=== PATIENT | female | born 1950 | race Caucasian/White ===

== ENCOUNTER → 2024-06-04 13:53 | Outpatient (REF) | payer OTHER, SELFPAY | LOC: RCS 13:53 | PROVIDERS: ATTENDING PHYSICIAN Internal Medicine; FAMILY PHYSICIAN Nurse Practitioner Adult Health | DX: R06.02 Shortness of breath (principal); I35.0 Nonrheumatic aortic (valve) stenosis | CPT/HCPCS: 93306 ==

== ENCOUNTER 2024-06-07 08:20 | Day surgery (SDC) | payer OTHER, SELFPAY ==
[2024-06-07] VITALS (16 sets, daily range): BP systolic 91–163; BP diastolic 49–75; BMI 28.2
[2024-06-07] MEDS: NSS 237 ML IV (09:00)
[2024-06-07] MEDS: LOW STRENGTH ASPIRIN 81 MG PO (09:37)
[2024-06-07 09:38] LABS: Hematocrit 32.4 % (37.0-47.0); Hemoglobin 11.1 g/dL (12.0-16.0); Mean Corp Hgb Conc. 34.3 g/dL (33.0-37.0); Mean Corpuscular Hgb 29.5 pg (27.0-31.0); Mean Corpuscular Volume 86.2 fL (81.0-99.0); Mean Platelet Volume 10.8 fL (7.4-10.4); Platelet Count 248 10^3/uL (130-400); Red Blood Cell Count 3.76 10^6/uL (4.20-5.40); Red Cell Dist. Width 13.8 % (11.5-14.5); White Blood Cell Count 4.8 10^3/uL (4.8-10.8)
[2024-06-07] MEDS: NSS 1000 IV (13:15)
--- NOTE | 2024-06-07 14:14 | PTCARENOTE ---
Dr Ng at pt bedside speaking to pt. Dr Ng made aware of pt's heart rate 30'-40's. Pt states she is asymptomatic. Dr Ng states she is known to have bradycardia and since she is asymptomatic, she can continue with flecainide starting
tonight. Pt verbalized understanding of instructions given with Dr Ng at pt bedside. Will continue to monitor.
--- NOTE | 2024-06-07 14:44 | ITS.CL.CATH ---
B[employer] [facility] [facility] - Catheterization
Cardiac Catheterization
Procedure Report:
CARDIAC CATHETERIZATION REPORT
Date of Procedure: 06/07/2024
Referring: Dr. Reji Ferguson
INDICATION: chest pain, aortic stenosis
PROCEDURES:
1. Left heart catheterization.
2. Right heart catheterization.
3. Coronary angiography.
ACCESS:
1. 6 Mosotho right radial artery
2. 6 Mosotho right brachial artery
CATHETERS:
1. 6 Mosotho JR4
2. 6 Mosotho JL3.5
HEMODYNAMIC DATA
Weight 79.1 kg
RA 19 mmHg
RV 46/15 mmHg
PA 42/20 (31) mmHg
PCWP 24 mmHg
SVR 1582 dyn units
PVR 1.6 BAILEY
CO/CI 4.2/2.2 L/min/m2
AO 165/72 (106)
LV 195/18 (29) mmHg
Pressure gradient 33 mmHg
ESTUARDO by Gorlin 0.83 cm2
CORONARY ANGIOGRAPHY
Dominance: left
Left Main: large, normal
LAD: Large vessel with mild luminal irregularities.
Circumflex: Large dominant vessel giving rise to two OM branches, multiple PL branches and the LPDA. There is a focal 40% stenosis in the proximal vessel and otherwise mild disease.
RCA: Small and non-dominant with mild disease.
Closure Device: TR band
Radiation:
DAP (cm2.Gy): 10.9652
Fluoroscopy time (minutes): 3.2
Dose (mGy): 181.70
CONCLUSIONS
1. Right heart catheterization demonstrates elevated right and left ventricular filling pressures, moderate post-capillary pulmonary hypertension, and reduced cardiac output and index with elevated SVR. Of note, calculated stroke volume is normal in
setting of bradycardia.
2. Simultaneous pressure measurement of AO and LV with Oneida catheter demonstrates normal flow, moderate-severe with mean pressure gradient 33 mmHg and ESTUARDO 0.83 cm2 by Gorlin.
3. Coronary angiography demonstrates non-obstructive coronary artery disease in a left dominant system.
RECOMMENDATIONS:
1. Expectant management after cardiac catheterization via radial artery approach including limited weight bearing on the right wrist for one week.
2. Medical management of non-obstructive coronary artery disease and aggressive secondary prevention of coronary artery disease.
3. Referral for TAVR/SAVR evaluation.
Copy to: Dr. Reji Ferguson
Valerio Ng MD, PhD
== END 2024-06-07 15:35 | disposition home or self-care (01) ==
LOC: CATH 08:20
PROVIDERS: ATTENDING PHYSICIAN Student in an Organized Health Care Education/Training Program; FAMILY PHYSICIAN Nurse Practitioner Adult Health; OTHER PHYSICIAN Internal Medicine
DX: I25.10 Atherosclerotic heart disease of native coronary artery without angina pectoris (principal); R07.9 Chest pain, unspecified; I35.0 Nonrheumatic aortic (valve) stenosis; I27.29 Other secondary pulmonary hypertension; Z79.82 Long term (current) use of aspirin; Z79.890 Hormone replacement therapy; Z79.899 Other long term (current) drug therapy
CPT/HCPCS: 85027; 93460; C1894; Q9967

== ENCOUNTER → 2024-06-21 09:06 | Outpatient (REF) | payer OTHER, SELFPAY | LOC: RAD 09:06 | PROVIDERS: ATTENDING PHYSICIAN Nurse Practitioner Acute Care; FAMILY PHYSICIAN Nurse Practitioner Adult Health | DX: I35.0 Nonrheumatic aortic (valve) stenosis (principal) | CPT/HCPCS: 74174; 75572; Q9967 ==

== ENCOUNTER 2024-10-12 04:54 | Inpatient (IN) | payer OTHER, SELFPAY ==
[2024-09-27 08:20] VITALS: BMI 28.6
[2024-09-27 09:16] LABS: Urine Albumin Negative (Neg - Trace); Urine Bilirubin Negative (Negative); Urine Character Clear (Clear); Urine Color Yellow; Urine Glucose Negative (Negative); Urine Ketone Negative (Negative); Urine Leukocyte Negative (Negative); Urine Nitrite Negative (Negative); Urine Occult Blood Negative (Negative); Urine Specific Gravity 1.015 (<1.030); Urine Urobilinogen Negative (Neg - 1+)
[2024-09-27 09:23] LABS: % Basophils 0.7 % (0-2); % Eosinophils 4.4 % (0-6); % Immature Granulocytes 0.2 % (0-0.5); % Lymphocytes 26.2 % (20.5-51.1); % Monocytes 9.9 % (1.7-9.3); % Neutrophils 58.6 % (42.2-75.2); Absolute Eosinophils 0.2 10^3/uL (0-0.7); Absolute Lymphocytes 1.2 10^3/uL (1.2-3.4); Absolute Monocytes 0.5 10^3/uL (0.1-0.6); Absolute Neutrophils 2.7 10^3/uL (1.4-6.5); Hematocrit 34.8 % (37.0-47.0); Hemoglobin 11.4 g/dL (12.0-16.0); INR 0.92; Mean Corp Hgb Conc. 32.8 g/dL (33.0-37.0); Mean Corpuscular Hgb 29.7 pg (27.0-31.0); Mean Corpuscular Volume 90.6 fL (81.0-99.0); Mean Platelet Volume 11.6 fL (7.4-10.4); Nucleated Red Blood Cells % 0 %; PT 12.7 Sec (11.4-14.6); Platelet Count 227 10^3/uL (130-400); Red Blood Cell Count 3.84 10^6/uL (4.20-5.40); Red Cell Dist. Width 13.4 % (11.5-14.5); White Blood Cell Count 4.6 10^3/uL (4.8-10.8)
[2024-09-27 09:46] LABS: ALT (SGPT) 21 U/L (0-35); AST (SGOT) 33 U/L (14-36); Albumin 4.4 g/dl (3.5-5.0); Alkaline Phosphatase 67 U/L (38-126); Blood Urea Nitrogen 17 mg/dl (7-17); Carbon Dioxide 29 mmol/L (22-30); Chloride 102 mmol/L (98-107); Direct Bilirubin 0.1 mg/dl (0.0-0.4); Estimated Creatinine Clearance 59 ml/min; Glucose 96 mg/dl (70-99); Potassium 4.3 mmol/L (3.5-5.1); Sodium 143 mmol/L (135-145); Total Bilirubin 0.4 mg/dl (0.2-1.3); Total Protein 6.8 g/dl (6.3-8.2); eGFR > 60.00
--- NOTE | 2024-09-27 10:06 | CM ---
Met with Mrs. Oviedo in [facility]. She states prior to admission she resides with her spouse and son in a two story home with four steps to enter. She states she has a main bedroom suite on the first floor. She states prior to admission she was
independent with ambulation and adls. She states she has a CPAP Machine at home and no other DME. She states she has a prescription plan. She states her spouse will be home to assist in his care if needed when she goes home. The discharge plan is
to return home with her spouse and a home visit by the Transitional Care Nurse when medically stable.
We reviewed pre-op and post-op routines. We reviewed the shower instructions. She has the soap, written instructions and the Cardiothoracic Surgery Educational Booklet. We also reviewed restrictions including sternal precautions and driving
restrictions. We discussed a home visit by the Transitional Care Nurse. She is agreeable to a home visit. The plan is for AVR on Saturday, October 12, 2024.
[2024-09-27 14:08] LABS: Glycohemoglobin (HgbA1c) 5.5 % (4.0-5.6)
[2024-10-12] VITALS (22 sets, daily range): BP systolic 63–187; BP diastolic 46–85; PULSE 56–60; BMI 27.7
[2024-10-12] MEDS: BACTROBAN 2% OINTMENT 1 APPLIC NASAL ×2 (05:18→20:04)
[2024-10-12] MEDS: LOPRESSOR 25 MG PO (05:18)
[2024-10-12] MEDS: MAGNESIUM OXIDE 500 MG PO (05:18)
[2024-10-12] MEDS: PROTONIX 40 MG PO (05:18)
--- NOTE | 2024-10-12 05:30 | PTCARENOTE ---
pt admitted into room 2261. VS and weight obtained. pt confirms 2 showers @ home and NPO since midnight. admission questions and med rec completed. clip prep and CHG cloth bath done. pre-op meds given. attempted several times to remove pt's rings
from left hand but unable to remove. pt's family @ bedside. all questions answered.
--- NOTE | 2024-10-12 06:21 | W.CVOR.SURPR ---
CVOR Surgeon Immed Pre Op
-
I have examined this patient prior to performance of the scheduled procedure.
The patient's condition is unchanged from the time of the dictated/written History and
Physical and the patient is able to undergo the scheduled procedure.
SAVR (bio) + SANIYA Clip
[2024-10-12 07:24] LABS: ACT+ - POC 98 Seconds (82-134)
[2024-10-12 07:48] LABS: Urine Albumin Negative (Neg - Trace); Urine Bilirubin Negative (Negative); Urine Character Clear (Clear); Urine Color Yellow; Urine Glucose Negative (Negative); Urine Ketone Negative (Negative); Urine Leukocyte Negative (Negative); Urine Nitrite Negative (Negative); Urine Occult Blood Negative (Negative); Urine Specific Gravity 1.015 (<1.030); Urine Urobilinogen Negative (Neg - 1+)
[2024-10-12 08:30] LABS: ACT+ - POC 514 Seconds (82-134)
[2024-10-12 08:48] LABS: B.E. - POC -0.1 mmol/L; Glucose - POC 104 mg/dl (70-99); HCO3 - POC 25 mmol/L (21-28); Hematocrit - POC 27 % PCV (37-47); Hemodilution- POC No; Hemoglobin Calculated - POC 9.3; Ionized Calcium - POC 1.16 mmol/L (1.15-1.33); PCO2 - POC 44 mmHg (35-48); PO2 - POC 560 mmHg (83-108); POC Comment BASELINE; Potassium - POC 4.1 mmol/L (3.5-5.1); Sodium - POC 141 mmol/L (136-145); Specimen Type - POC Arterial; pH - POC 7.37 (7.35-7.45)
[2024-10-12 08:55] LABS: ACT+ - POC 621 Seconds (82-134)
[2024-10-12 09:13] LABS: B.E. - POC 3.7 mmol/L; Glucose - POC 141 mg/dl (70-99); HCO3 - POC 28 mmol/L (21-28); Hematocrit - POC 22 % PCV (37-47); Hemodilution- POC Yes; Hemoglobin Calculated - POC 7.5; Ionized Calcium - POC 0.96 mmol/L (1.15-1.33); PCO2 - POC 38 mmHg (35-48); PO2 - POC 372 mmHg (83-108); POC Comment CPB; Potassium - POC 5.1 mmol/L (3.5-5.1); Sodium - POC 139 mmol/L (136-145); Specimen Type - POC Arterial; pH - POC 7.47 (7.35-7.45)
[2024-10-12 09:24] LABS: ACT+ - POC 586 Seconds (82-134)
[2024-10-12 09:40] LABS: Glucose - POC 182 mg/dl (70-99); HCO3 - POC 27 mmol/L (21-28); Hematocrit - POC 27 % PCV (37-47); Hemodilution- POC Yes; Hemoglobin Calculated - POC 9.3; Ionized Calcium - POC 1.06 mmol/L (1.15-1.33); O2 Saturation %Calculated-POC 99.9 % (94-98); PCO2 - POC 43 mmHg (35-48); PO2 - POC 309 mmHg (83-108); POC Comment WARM; Sodium - POC 142 mmol/L (136-145); Specimen Type - POC Arterial; pH - POC 7.41 (7.35-7.45)
[2024-10-12 09:43] LABS: ACT+ - POC 107 Seconds (82-134)
[2024-10-12 10:06] LABS: B.E. - POC -1.3 mmol/L; Glucose - POC 129 mg/dl (70-99); HCO3 - POC 23 mmol/L (21-28); Hematocrit - POC 26 % PCV (37-47); Hemodilution- POC Yes; Hemoglobin Calculated - POC 8.9; PCO2 - POC 38 mmHg (35-48); PO2 - POC 368 mmHg (83-108); POC Comment POST; Potassium - POC 3.9 mmol/L (3.5-5.1); Sodium - POC 141 mmol/L (136-145); Specimen Type - POC Arterial
--- NOTE | 2024-10-12 10:17 | W.PN.CT.SURG ---
CT Surgery Operative Note
-
CARDIAC SURGERY OPERATIVE REPORT
Preoperative Diagnosis: Aortic valve stenosis with symptoms
Postoperative Diagnosis: Same
Procedure(s) Performed:
1. Standard sternotomy with aortic and right atrial cannulation
2. Surgical aortic valve replacement [23mm biological valve]
3. Left atrial appendage exclusion [35 mm clip]
4. Placement temporary atrial ventricular pacing wires
5. Transesophageal echocardiography
Date of Surgery: 10/12/2024
Comorbidities:
1. Severe aortic valve stenosis, symptomatic
2. Uterine fibroids
3. Hyperlipidemia
4. Hypertension
5. Thyroid disease
6. Osteoarthritis
7. Nonobstructive coronary artery disease
8. Mild mitral valve insufficiency with moderately severe mitral annular calcification
9. Diverticulosis
10. Former tobacco abuser 1 to 2 packs/day for 30 years
Attending Surgeon: Gilmer Merritt MD, MS
Assistants: Aliya Yang PA-C (present and necessary to assistance coordinator, retraction, suction, exposure, suture management, and wound closure under my direction)
Anesthesiology: Rocco Gray MD and Gracie Danielle CRNA
Scrub and Circulating RNs: Salima Bennett, MARKY, Tono Gutierrez RN
Stone Mill Operator: Ivet Scott CCP
Anesthesia: GETA
EBL: per perfusion records
Products: None
CPB Time: 58 minutes
Aortic Cross Clamp Time: 46 minutes
Indication(s) for Procedures: This is a 74-year-old female with known severe aortic valve stenosis. She has recently become symptomatic in the form of shortness of breath with exertion and fatigue. She was discussed at our multidisciplinary TAVR
clinic however the patient desired to have a surgical aortic valve replacement. Despite her age of 74, she was in excellent functional status and was considered a low risk SAVR patient.
Aortic Valve Description: Heavily calcified trileaflet aortic valve mostly towards the body and free margin the leaflets with the left and right coronary ostia in the normal anatomic positions. The right coronary ostia was heavily calcified. Both
coronary ostia were of appropriate heights above the annulus. LVOT measures only 2.0 cm.
Findings: Left ventricular ejection fraction preoperatively 65% with no regional wall motion abnormalities. She had a mild to moderate degree of left ventricular hypertrophy, small LVOT with a hockey-stick shaped outflow tract. Her annulus
measured to approximate 23 mm valve and given her ventricular hypertrophy and steep angle of her LVOT, I felt that she would be at some risk for systolic anterior motion the mitral valve leaflets following surgery. Following surgery EF remained the
same at 65% with no regional wall motion abnormalities. Her aortic valve was replaced with a 23 mm bioprosthesis and secured into place with 14 nonpledgeted 2 Ethibond sutures with core knots. Initially coming off of cardiopulmonary bypass she had
a mild to moderate degree of systolic anterior motion of the mitral valve leaflets, this improved with volume loading and afterload. She was in a junctional rhythm after surgery and so atrial pacing wires were placed at which point she was able to
be atrial ventricular paced. She did not require any blood products, did not require inotropic support. Her left atrial appendage was verified to be free of any thrombus or debris preoperatively and found to be totally occlusive postoperatively.
Her ligament of Ricki was divided..
Specimen(s): Aortic valve leaflets.
Prosthesis:
1. 23 mm bioprosthesis Tsai Inspiris Resilia, serial # [id number].
2. 35 mm left atrial appendage clip, serial #[id number]
Description of Procedure: The patient was taken to the operating room. Their identity and procedure to be performed were verified and they were positioned supine on the operating table. Induction via general anesthesia with endotracheal intubation
was performed and central venous access and arterial monitoring were inserted. A preoperative transesophageal echocardiogram was performed to assess cardiac function and valvular function. The patient was then prepped and draped from chin to feet in
a sterile fashion. A preoperative time-out was performed with all members of the team present. A midline chest incision was performed along with median sternotomy. The innominate vein was isolated. Full heparinization was given (a total of 35,000
units). We created a pericardial well. The aortic cannulation site was chosen where it was soft, pliable, and free of calcium. Cannulation was performed with an arterial cannula in the ascending aorta and a triple-stage venous cannula through the
right atrial appendage. The arterial cannula line had an appropriate bounce and correlating pressures with test dosing. Next, a root vent/antegrade cannula was inserted into the ascending aorta. The ACT was confirmed to be over 400 and retrograde
autologous priming was performed before commencing cardiopulmonary bypass. The pulmonary artery was away from the aorta to facilitate a clamp site and aortotomy. A left ventricular vent was placed at the right superior pulmonary vein and
secured. The aortic cross-clamp was placed after decreasing the flow on the bypass and mean arterial pressure. A total of 1.0L initial dose of antegrade Del-Nido cardioplegia solution was given and planned for re-dosing every 75 minutes as
necessary. There was rapid electro-mechanical arrest of the heart at 300 cc of cardioplegia. The left ventricle was observed for distention on echocardiogram and manual palpation. Cold slush was placed into a sponge and topically on the RV while we
systemically cooled to 34 degrees centigrade. The heart was then rotated medially and the left atrial appendage was clipped with a 35 mm device after division of the ligament of Ricki.
Carbon dioxide was used to flood the field. We manually identified the location of the right coronary take off. An aortotomy was made approximately 2cm above the sinotubular junction. The location of both left and right coronary vessels were
visualized in the root.The leaflets were excised and sent for pathological assessment. The annulus was debrided of any calcium being mindful of the annulus and membranous septum. The root and left ventricular outflow tract were thoroughly irrigated
to remove any debris. A total of 14 non-pledgeted 2-0 ethibond inverted annular sutures were placed [id number] circumferentially. These were brought through the sewing cuff of the prosthetic valve which as then parachuted into place. The left and
right coronary ostia were visualized and were unobstructed by the valve. A Cor-Knot device was used to secure the annular sutures. The valve was inspected and was well seated. The aortotomy was approximated with 4-0 prolene in two layers. De-airing
maneuvers were performed and temporary bipolar ventricular pacing wires were placed on the base of the right ventricle. The patient was placed in a Trendelenburg position and flows on bypass were lowered. The aortic cross clamp was removed and flows
were slowly brought back up. The aortotomy appeared hemostatic. Transesophageal echocardiography revealed no paravalvular leak and appropriate prosthetic function. Once de-airing was satisfactory, the left ventricular and root vents were removed.
After verifying acceptable parameters, we initiated weaning from cardiopulmonary bypass. Once we were off cardiopulmonary bypass, the venous cannula was clamped and removed. A test dose of protamine was administered and the patient was monitored for
any adverse reaction before resuming protamine. Once half of the protamine dose was delivered, pump suckers were turned off and the systolic blood pressure was lowered for aortic decannulation. The aortic cannula was removed and pursestrings were
tied down. All cannulation sites were oversewn with a 4-0 prolene. The aortotomy suture line was inspected and hemostasis was confirmed. Mediastinal hemostasis was obtained. Two 24Fr Ramon drains were placed within the pericardium. The sternum was
approximated with 4#7 single and 3 #8 double stainless steel wires. Fascia was approximated with #1 vicryl suture. The subcutaneous, dermis and epidermis were closed in layers in a running fashion. The skin wound was cleansed and dressed.
All instrument, sponge, and needle counts were confirmed to be correct x 2 at the end of the operation. The patient was transferred to the cardiac intensive care unit in critical but stable condition.
I, Dr. Gilmer Merritt, was present, scrubbed for, and performed all critical elements of this procedure.
Gilmer Merritt MD, MS
Cardiothoracic Surgeon
[facility]
This operative dictation was created using the [employer] dictation system. Please excuse any grammatical, typographical, or 'sound alike' errors
--- NOTE | 2024-10-12 10:33 | CON.INTV ---
Consultation
Consultation Request
Date/Time Consultation Requested: 10/12/2024 - 1005
Date/Time Consultation Performed: 10/12/2024 - 1029
Requesting Provider: OSMAR Schofield
Performing Provider: Presley Farr MD
Reason for Consultation: s/p SAVR
Medical History
-
Chief Complaint: Aortic valve replacement
History of Present Illness:
74-year-old female former tobacco smoker (13-[id number]-cuyy, quit 2001) with a past medical history of moderate�severe aortic stenosis, severe TIAN on auto CPAP, uterine fibroids s/p hysteroscopy with resection, mitral regurgitation, hiatal hernia,
cataracts, paroxysmal A-fib on flecainide, and osteoarthritis who presents with surgical aortic valve replacement. She is known to the cardiothoracic surgery service with last visit on 09/14/[address] Merritt. She has a history of known
progressive aortic valve stenosis. Her last echocardiogram was from 06/04/2024 showing moderate�severe aortic stenosis with a peak gradient of 63 mmHg with a mean of 35 mmHg. Left heart catheterization from 06/07/2024 showed left-sided heart failure
with PCWP 24 mmHg, CO/CI: 4.2/2.2, respectively, with an aortic valve gradient of 33 mmHg with an ESTUARDO of 0.83 cm�. LHC also showed nonobstructive CAD with a left dominant system. She endorses fatigue with shortness of breath and satisfied stage D
symptomatology for intervention. Risks and benefits of surgical aortic valve replacement were discussed and she agreed for intervention. Today she underwent surgical aortic valve replacement with a 23 mm biological valve as well as a left atrial
appendage exclusion with a 35mm clip. There were no complications and she was transferred to the CVICU for further care. [employer] Machine Operator Helper services consulted for additional management/recommendations.
When I saw the patient she was resting in bed on SIMV at 14/500/40%/5 with PSV: 5. PIP was 22 cmH2O with VTe 525 mL and breathing at 14 breaths/min. BP via left radial A-line was 133/64, heart rate 60, BP via NIBP: 145/85, PAP: 22/12. She is
currently on Precedex at 0.3 mcg/kg/hr + insulin drip at 2.3 units/hr. She has mediastinal chest tubes x 2.
Of note patient follows with us in the [facility] office with last visit on 12/18/2023 with OSMAR Harris. She has a history of severe TIAN (baseline AHI: 53.9 events/hr with sammi SpO2 75% via HSAT on09/17/2023) and uses auto-CPAP (5-08mgH9I).
Her average CPAP pressure is 9.7 cmH2O with max pressure of 10.8 cmH2O. Her last download showed a residual AHI of 8.4 events/hr. She was told to follow-up with us in 1 year for a compliance CPAP follow-up.
PMHx: Uterine fibroids s/p hysteroscopy with resection, lichen planus (resolved), hypothyroidism, hypercholesterolemia, moderate-severe aortic stenosis, hypertension, mitral regurgitation, hiatal hernia, osteoarthritis, cataracts, paroxysmal A-fib
on flecainide, former tobacco smoker (93-jshm-kwof history, quit 2001), TIAN on CPAP
PSHx: Cystocele repair with sling (release of sling 2012), therapeutic dose of iodine 123 (01/2001), D&C with vaginal cyst removed (10/2001), D&C (04/2006), dental implants, removal of mole in the right upper leg (11/2016)
Past Medical History
Past Medical History: Other (Above as per HPI)
Past Surgical History: Other (Above as per HPI)
Social History
Tobacco: Former Smoker (54-binb-hcgy history, quit 2001)
Alcohol: Occasional
Drug: None
Family History
Family History: Cancer (Father: Pancreatic cancer), Diabetes (Brother) and Other (Father: Alcoholism; Sister: Alzheimer's disease; Brother: Congenital heart defect + TIAN on CPAP)
Allergies / Home Medications
Allergies
Allergy/AdvReac Type Severity Reaction Status Date / Time
ciprofloxacin [From Cipro] Allergy Rash Verified 09/21/24 15:00
ciprofloxacin HCl Allergy Rash and Verified 09/21/24 15:00
[From Cipro] itch
pollen extracts Allergy runny nose Verified 09/21/24 15:00
Perch fish Allergy red eyes Uncoded 09/21/24 15:00
and itching
Home Medications
�Medication �Instructions �Recorded �Confirmed �Last Taken �Type
Tumeric Kimberly Black Pepper 25 250 mg PO NOON Supplement 06/07/24 10/12/24 10/02/24 09:00 History
Vitamin D3 50mcg Gummy 2 gummy PO NOON Supplement 06/07/24 10/12/24 10/02/24 09:00 History
aspirin 81 mg tablet,delayed 81 mg PO QPM Blood Clot 06/07/24 10/12/24 10/11/24 18:00 History
release Prevention/Tx
atorvastatin 10 mg tablet 40 mg PO QPM High Cholesterol 06/07/24 10/12/24 10/11/24 18:00 History
coQ10 (ubiquinol) 100 mg capsule 200 mg PO QPM Supplement 06/07/24 10/12/24 10/02/24 18:00 History
escitalopram oxalate 20 mg tablet 20 mg PO QPM Mental Health/Anxiety 06/07/24 10/12/24 10/11/24 18:00 History
famotidine 20 mg tablet 20 mg PO QPM Gastrointestinal Issue 06/07/24 10/12/24 10/11/24 18:00 History
flecainide 100 mg tablet 50 mg PO BID Arrhythmia 06/07/24 10/12/24 10/11/24 18:00 History
levothyroxine 100 mcg capsule 100 mcg PO DAILY Thyroid 06/07/24 10/12/24 10/11/24 09:00 History
(Tirosint)
multivitamin with minerals-folic 2 tab PO NOON Supplement 06/07/24 10/12/24 10/02/24 09:00 History
acid 200 mcg chewable tablet
(Multivitamin Gummies)
furosemide 20 mg tablet 20 mg PO DAILY Fluid 09/21/24 10/12/24 10/11/24 09:00 History
Retention/Swelling
Review of Systems
-
Unable to Obtain full review of systems at this time due to: Patient Intubation
Vitals / Labs / Diagnostic Testing
Vital Signs
Temp Pulse Resp BP Pulse Ox
96.7 F L 60 14 79/51 99
10/12/24 12:00 10/12/24 12:00 10/12/24 12:00 10/12/24 12:00 10/12/24 12:00
Lab Data
10/12/24 10:38
Laboratory Results
10/12/24
10:38
PT 17.0 H
INR 1.35
APTT 36.9 H
pH 7.38
pCO2 42 H
pO2 183 H
HCO3 24.8
O2 Delivery Level Vent
Diagnostic Testing:
Physical Exam
-
HEENT: Normocephalic, Anicteric and Other (ETT in place)
Cardiovascular: S1/S2 and Peripheral Edema (negative)
Respiratory: Wheeze (negative), Rales (negative), Rhonchi (negative), Non-Labored Respirations and Other (Mechanical breath sounds heard bilaterally)
GI: Soft, Non Distended, Non Tender and Normal Bowel Sounds
Neurology: Tremors (negative) and Other (Sedated)
Skin: Warm and Dry
General: Respiratory Distress (negative), Comfortable, Fever (negative), Chills (negative) and Sweats (negative)
Assessment
-
Assessment: 74-year-old female former tobacco smoker (07-[id number]-njxz, quit 2001) with a past medical history of moderate�severe aortic stenosis, severe TIAN on auto CPAP, uterine fibroids s/p hysteroscopy with resection, mitral regurgitation, hiatal
hernia, cataracts, paroxysmal A-fib on flecainide, and osteoarthritis who presents with surgical aortic valve replacement. She is known to the cardiothoracic surgery service with last visit on 09/14/[address] Merritt. She has a history of known
progressive aortic valve stenosis. Her last echocardiogram was from 06/04/2024 showing moderate�severe aortic stenosis with a peak gradient of 63 mmHg with a mean of 35 mmHg. Left heart catheterization from 06/07/2024 showed left-sided heart failure
with PCWP 24 mmHg, CO/CI: 4.2/2.2, respectively, with an aortic valve gradient of 33 mmHg with an ESTUARDO of 0.83 cm�. LHC also showed nonobstructive CAD with a left dominant system. She endorses fatigue with shortness of breath and satisfied stage D
symptomatology for intervention. Risks and benefits of surgical aortic valve replacement were discussed and she agreed for intervention. On 10/12/2024, she underwent surgical aortic valve replacement with a 23 mm biological valve as well as a left
atrial appendage exclusion with a 35mm clip. There were no complications and she was transferred to the CVICU for further care. [employer] Operator Helper services consulted for additional management/recommendations
Chronic conditions RECEIVING SUPERVISOR: Uterine fibroids s/p hysteroscopy with resection, lichen planus (resolved), hypothyroidism, hypercholesterolemia, moderate-severe aortic stenosis, hypertension, mitral regurgitation, hiatal hernia, osteoarthritis, cataracts,
paroxysmal A-fib on flecainide, former tobacco smoker (69-clwp-oipi history, quit 2001), TIAN on CPAP
Impression:
#Symptomatic aortic valve stenosis s/p surgical aortic valve replacement with 23 mm biological valve + left atrial appendage exclusion with 35mm clip (POD #0)
#Acute anemia
#TIAN on CPAP
#Uterine fibroids
#Hypertension
#Hyperlipidemia
#Thyroid disease
#Nonobstructive CAD
#Former tobacco use (1�2 PPD x 30 years, quit 2001)
#Mild MR with moderate to severe mitral annular calcification
#History of diverticulosis
Plan:
Ventilator settings reviewed
FiO2 will be weaned to maintain SpO2 >90-94%
Minute ventilation will be adjusted
Arterial blood gases will be monitored
Spontaneous breathing trial will be attempted with hopeful extubation after anesthesia/sedation wear off
prn nebulized bronchodilators
Pulmonary artery catheter parameters will be followed
Pressors/antihypertensive/inotropes/diuretics will be provided as needed
Maintain MAP>65
Replete electrolytes with K>4, Mg>2
Monitor chest tube output (mediastinal chest tubes x2)
Monitor hemoglobin
Monitor platelet count and coags
Transfuse blood products as needed to maintain Hb>7g/dL, plt>50k (given post-operative status)
CT surgery managing chest tubes
Monitor blood sugar to maintain euglycemia with goal BG 140-180
Insulin drip per protocol
Aspiration precautions
VAP prevention protocol
DVT prophylaxis
Early nutrition
Early mobilization
Of note, patient will need to continue with follow-up with our [facility] office as last visit was on 12/18/2023 with OSMAR Harris due to her history of severe TIAN on auto-CPAP.
Critical care statement: A total of 41 minutes of critical care time was provided for this patient today. This includes management of ventilator, spontaneous breathing trial, arterial blood gases, pressors, of unstable vital signs, evaluation of the
patient at bedside, reviewing the patient's pertinent medical records including radiographs, microbiology, laboratory evaluations, and discussion with primary team and critical care nursing.
[2024-10-12] MEDS: LR 250 ML IV ×4 (10:45→16:20)
[2024-10-12 10:48] LABS: Glucose - Point of Care 118 mg/dl (70-99)
[2024-10-12 10:49] LABS: Hematocrit 27.8 % (37.0-47.0); Hemoglobin 9.4 g/dL (12.0-16.0); Platelet Count 184 10^3/uL (130-400)
[2024-10-12 10:52] LABS: B.E. -0.4 mmol/L; HCO3 24.8 mmol/L (21-28); Ionized Calcium 1.27 mMOL/L (1.15-1.33); O2 Saturation % 99.8 % (94-98); PCO2 42 mmHg (32-35); PO2 183 mmHg (83-108); Potassium 4.2 mMOL/L (3.5-5.1); Sodium 137 mMOL/L (136-145); pH 7.38 (7.35-7.45)
[2024-10-12 10:53] LABS: O2 Therapy VENT
[2024-10-12 10:54] LABS: Mixed Venous O2 Saturation 66.9 %
[2024-10-12 10:59] LABS: INR 1.35
[2024-10-12 11:01] LABS: APTT 36.9 Sec (23.4-35.0)
[2024-10-12 11:09] LABS: Blood Urea Nitrogen 17 mg/dl (7-17); Estimated Creatinine Clearance 67 ml/min; Glucose 113 mg/dl (70-99); Magnesium 2.9 mg/dl (1.6-2.3)
--- NOTE | 2024-10-12 11:30 | CM ---
Chart reviewed. Patient is in the OR today. Patient is independent of ADLS, lives with her and son in a 2 STH, 4 JOSE, 0 DME, 1st floor set up. Plan is for the patient to return home with CT Transitional RN. CM to follow
--- NOTE | 2024-10-12 11:39 | PTCARENOTE ---
Received pt from [facility] ~1030. Pt intubated and sedated. Precedex infusing as ordered. Pt 100% A/V paced on the tele monitor. HR 60. Temporary epicardial A/V wires intact and set to backup rate of 60 - see worklist for full pacing settings. Heart
tones audible. BP's labile. BP 80-140s/50-60s. 250 LR bolus x2 and levo infusing per protocol. On xray - swan is twisted. CTPA aware and at bedside. CVP ~ 6. PAP ~ 20s/10s. Initial CI 1.15 / CO 2.20. MVO2 66.9. ETT #8.O, 21 cm at the right lip.
Mouth care completed. See worklist for full vent settings. POX 99%. Lung sounds audible anteriorly. Mediastinal CTx2 to -20 suction, no airleak noted at this time, and output WNL. Abdomen soft. Hypoactive BS. Fay catheter C/D/I and draining yellow
urine. Stat lock applied and Fay care completed. Right IJ cordis w/ swan and left radial a-line C/D/I. All lines leveled, zeroed, and flushed. Sternal incision approximated w/ surgical adhesive and STANDARDS ENGINEER. Glycemic protocol followed. Labs drawn and
sent. Osmar locke applied. Hold on EKG at this time because pt is 100% A/V paced. Family to room to see pt.
--- NOTE | 2024-10-12 11:53 | W.PN.CD ---
Addendum entered and electronically signed by Walter Alvarez MD 10/12/24 14:54:
I saw and examined the patient.
The SEARCH ANALYST's note was reviewed and I agree with the note.
Comment:
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
Resilia) and SANIYA clip (35 mm) on 10/12/[address] Merritt. Mild BRANDEE after replacement coming off bypass which improved with volume and afterloading. Pre and post LVEF 65% without RWMA. Postoperative MG 6 mmHg. In a junctional rhythm postoperatively,
now paced. ECG sinus bradycardia with nonspecific ST-T wave changes. Patient is still intubated and sedated at the time of my exam. Continue routine postoperative care per CT surgery. Continue aspirin and atorvastatin for nonobstructive CAD.
Currently on amiodarone, likely for atrial fibrillation prophylaxis. She is also ordered for metoprolol 12.5 mg every 12 hours. She did not tolerate beta-ismael in the past due to symptomatic bradycardia, but given her nonobstructive CAD,
flecainide may not be a good option for PVCs. We may have to retrial beta-blockers or explore a different strategy. No diuresis for now as she appears euvolemic. We will trend her volume exam daily. Cardiology will continue to follow along.
Please call with any additional questions or concerns.
Original Note:
Today's Communication / Plan
-
Follow telemetry
Impression / Plan
-
IMPRESSION/PLAN: 74F with frequent idiopathic PVCs, mild mitral regurgitation, dyslipidemia, hypothyroidism, ITAN on CPAP, former cigarette smoker, and severe aortic stenosis presents for SAVR
Outpatient finished goods inspector: Dr. Britt
Severe aortic stenosis status post surgical trickle aortic valve replacement (23 mm Tsai Inspiris Resilia) on 10/12/[address] Merritt
-Left atrial appendage exclusion with 35mm clip
-Mild BRANDEE after replacement coming off bypass which improved with volume and afterloading
-Pre and post LVEF 65% without RWMA
-Postoperative MG 6 mmHg
-In a junctional rhythm postoperatively, now paced
-EKG pending
Hypertension, follow postoperatively
PVCs
-9% burden on outpatient monitoring
-She did not tolerate beta-ismael due to symptomatic bradycardia
-On flecainide
Postoperative anemia, expected, transfusions per CT surgery
Dyslipidemia, on atorvastatin
Former cigarette smoker, continue cessation recommended
Hypothyroidism on Tirosint
SUBJECTIVE:
Operative report reviewed. Patient intubated and sedated.
DATA:
Cardiac catheterization, 06/07/2024:
CONCLUSIONS
1. Right heart catheterization demonstrates elevated right and left ventricular filling pressures, moderate post-capillary pulmonary hypertension, and reduced cardiac output and index with elevated SVR. Of note, calculated stroke volume is normal in
setting of bradycardia.
2. Simultaneous pressure measurement of AO and LV with Stratford catheter demonstrates normal flow, moderate-severe with mean pressure gradient 33 mmHg and ESTUARDO 0.83 cm2 by [place]lin.
3. Coronary angiography demonstrates non-obstructive coronary artery disease in a left dominant system.
Physical Exam
Vital Signs/Labs
Vital Signs
Temp Pulse Resp BP Pulse Ox
96 F L 60 14 89/62 97
10/12/24 11:00 10/12/24 11:17 10/12/24 11:00 10/12/24 11:17 10/12/24 11:17
10/11/24 10/12/24 10/13/24
06:59 06:59 06:59
Actual Weight 80.1 kg
10/12/24 10:38
PT 17.0 Sec (11.4-14.6) H 10/12/24 10:38
INR 1.35 10/12/24 10:38
APTT 36.9 Sec (23.4-35.0) H 10/12/24 10:38
Magnesium 2.9 mg/dl (1.6-2.3) H 10/12/24 10:38
Physical Exam
Constitutional: No acute distress and Comfortable
EENT: Anicteric and Moist mucous membranes
Cardiovascular: Rhythm & rate is regular, Pedal edema is absent and S1S2 is normal
Respiratory: Lungs clear to auscul. and Other (Mechanical ventilation)
GI: Soft and Distention absent
Neuro/Psych: Other (Sedated, opens eyes to name)
Other: Skin (Warm and dry without edema)
Data Reviewed
-
Date of Service: October 12, 2024
[2024-10-12 12:11] LABS: Glucose - Point of Care 117 mg/dl (70-99)
[2024-10-12] MEDS: ANCEF 10 IV ×2 (12:18)
[2024-10-12] MEDS: NEURONTIN PO (12:18)
[2024-10-12] MEDS: NSS 500 IV (12:19)
[2024-10-12 12:57] LABS: Glucose - Point of Care 98 mg/dl (70-99)
[2024-10-12 14:03] LABS: Glucose - Point of Care 130 mg/dl (70-99)
[2024-10-12 14:36] LABS: Hemoglobin 9.8 g/dL (12.0-16.0); Platelet Count 206 10^3/uL (130-400)
[2024-10-12] MEDS: TYLENOL PO ×2 (14:53→21:02)
[2024-10-12] MEDS: OFIRMEV 100 IV ×2 (15:11→20:25)
[2024-10-12 15:12] LABS: B.E. -0.2 mmol/L; HCO3 24.8 mmol/L (21-28); PCO2 41 mmHg (32-35); PO2 174 mmHg (83-108); Potassium 4.2 mMOL/L (3.5-5.1); pH 7.39 (7.35-7.45)
--- NOTE | 2024-10-12 15:52 | PTCARENOTE ---
Pt AAOx3. Following commands appropriately. Pt 100% A-paced on the tele monitor. HR 56. See worklist for full pacer settings. BP 100-110s/50-60s. Up/down on levo per protocol. Pt placed on CPAP trial ~1430. ABG drawn and sent ~1500. Per CTPA okay to
extubate. Pt extubated to 6 L NC by respiratory. POX 100%. Mediastinal CTx2 assessment unchanged from original. Fay catheter C/D/I and draining yellow urine >30 ml/hr. Sterling DC'd as ordered. Left radial a-line C/D/I. A-line leveled, zeroed, and
flushed. Sternal incision intact and DWAINE. Pt repositioned in bed. Glycemic protocol followed. See worklist for full nursing interventions. Call gaytan within reach. Family at the bedside.
[2024-10-12 16:09] LABS: Glucose - Point of Care 119 mg/dl (70-99)
[2024-10-12] MEDS: ALBUMIN 5% 250 IV ×2 (16:31→17:46)
[2024-10-12] MEDS: ANCEF 5 IV (16:34)
[2024-10-12] MEDS: LOW STRENGTH ASPIRIN 81 MG PO (16:34)
[2024-10-12] MEDS: NEURONTIN 100 MG PO ×2 (16:35→21:02)
[2024-10-12] MEDS: TORADOL 15 MG IV (16:35)
[2024-10-12 18:13] LABS: Glucose - Point of Care 108 mg/dl (70-99)
[2024-10-12] MEDS: LIPITOR 40 MG PO (18:13)
[2024-10-12] MEDS: SENOKOT-S 1 TABLET PO (20:03)
[2024-10-12 20:12] LABS: Glucose - Point of Care 91 mg/dl (70-99)
[2024-10-12 22:13] LABS: Glucose - Point of Care 120 mg/dl (70-99)
[2024-10-12] MEDS: LEVOPHED 250 IV (22:14)
--- NOTE | 2024-10-12 22:22 | PTCARENOTE ---
Pt reassessed. Pt AAOx3 and following commands appropriately. Pt is 100% A-paced on the tele monitor. HR increased to 60 by CTPA on temporary pacer. BP 110s-120s/50s. BP slightly labile. Up/down on levo per protocol. Pt on CPAP machine w/ 5 L O2.
POX 99-100%. Mediastinal CTx2 assessment unchanged from original. Fay catheter C/D/I and draining yellow urine. Sternal incision approximated and DWAINE. Left radial a-line leveled, zeroed, and flushed. Right IJ cordis and PIV x1 C/D/I. Glycemic
protocol followed. Pt received 250 Albumin x 2 - see DEC. Pain control - see DEC. Call gaytan within reach.
[2024-10-13] VITALS (41 sets, daily range): BP systolic 84–124; BP diastolic 42–100; PULSE 70
[2024-10-13 00:12] LABS: Glucose - Point of Care 102 mg/dl (70-99)
[2024-10-13] MEDS: ANCEF 5 IV ×2 (00:13→08:29)
[2024-10-13] MEDS: TORADOL 15 MG IV ×2 (00:17→08:25)
--- NOTE | 2024-10-13 00:36 | PTCARENOTE ---
assumed care of pt from previous shift RN, A paced on tele at a rate of 60 via epicardial pacing wire, V wire insulated. + peripheral pulses, no edema noted. Lungs diminished, coughing and deep breathing encouraged, pox 98% on 4L NC. Left radial
felice leveled and zeroed BP 110-120/50-60. Right IJ cordis w KVO and Levophed infusing, PIV w insulin per glycemic protocol. CT x2 w minimal amount of red drainage, castellanos catheter draining yellow. Pt medicated for pain. Castellanos and mouth care
provided. Plan of care reviewed w pt and questions encouraged.
[2024-10-13 02:11] LABS: Glucose - Point of Care 107 mg/dl (70-99)
[2024-10-13 03:17] LABS: Hematocrit 23.6 % (37.0-47.0); Hemoglobin 7.9 g/dL (12.0-16.0); Mean Corp Hgb Conc. 33.5 g/dL (33.0-37.0); Mean Corpuscular Hgb 29.9 pg (27.0-31.0); Mean Corpuscular Volume 89.4 fL (81.0-99.0); Mean Platelet Volume 11.2 fL (7.4-10.4); Platelet Count 156 10^3/uL (130-400); Red Blood Cell Count 2.64 10^6/uL (4.20-5.40); Red Cell Dist. Width 13.8 % (11.5-14.5); White Blood Cell Count 14.9 10^3/uL (4.8-10.8)
--- NOTE | 2024-10-13 03:19 | PTCARENOTE ---
routine labs and EKG obtained.
[2024-10-13 03:58] LABS: Blood Urea Nitrogen 22 mg/dl (7-17); Calcium 8.4 mg/dl (8.4-10.2); Carbon Dioxide 27 mmol/L (22-30); Chloride 103 mmol/L (98-107); Estimated Creatinine Clearance 67 ml/min; Glucose 93 mg/dl (70-99); Magnesium 2.3 mg/dl (1.6-2.3); Potassium 4.2 mmol/L (3.5-5.1); Sodium 136 mmol/L (135-145); eGFR > 60.00
[2024-10-13 04:30] LABS: Glucose - Point of Care 87 mg/dl (70-99)
--- NOTE | 2024-10-13 05:31 | W.PN.CT ---
Today's Communication / Plan
-
-pod #1
-no issues overnight
-a-paced @ 60 (underlying rhythm is nsr 45 bpm). Preop rhythm was nsr 49 bpm. Hx of BB intolerance
-drips: Insulin, Levo 3
-CT output: 2 meds 120/250 in 12/24 hrs
-wean off Levo, then deline
-d/c Fay
-d/c insulin
-current meds (ASA, Lipitor, Protonix, iv iron). Not on BB or Amio d/t hx pre-existing bradycardia 40s
-encourage IS, OOB
Assessment / Plan
-
- Severe symptomatic - s/p Surgical aortic valve replacement [23mm biological valve Tsai Inspiris Resilia]; Left atrial appendage exclusion [35 mm clip] by Dr. Merritt on 10/12/24, pod #1
- Intraop BOBBY: LVEF preop and postop 65% with no regional wall motion abnormalities. She had a mild to moderate degree of left ventricular hypertrophy, small LVOT with a hockey-stick shaped outflow tract. Initially coming off of cardiopulmonary
bypass, she had a mild to moderate degree of systolic anterior motion of the mitral valve leaflets. This improved with volume loading and afterload. Her SANIYA was verified to be free of any thrombus or debris preop and found to be totally occlusive
postop. She was in a junctional rhythm after surgery.
- Uterine fibroids
- Hyperlipidemia
- Hypertension
- Hypothyroid disease
- Osteoarthritis
- Nonobstructive coronary artery disease
- Mild mitral valve insufficiency with moderately severe mitral annular calcification
- Diverticulosis
- Former tobacco use 1 to 2 packs/day for 30 years
- Few scattered <5 mm pulmonary nodules b/l and calcified ganulomas on left on chest CT
- Preop bradycardia 49 bpm (not on AVN blocking meds preop)
- Acute postop blood loss anemia - stable, no bleeding
- Acute postop atelectasis
- Acute postop hypovolemia with subsequent hypervolemia
Discussed patient care with: Nursing and Care Team
Subjective
Procedure
- s/p Surgical aortic valve replacement [23mm biological valve Tsai Inspiris Resilia]; Left atrial appendage exclusion [35 mm clip] by Dr. Merritt on 10/12/24
-
Date of Service: October 13, 2024
Objective Data
-
PT 17.0 Sec (11.4-14.6) H 10/12/24 10:38
INR 1.35 10/12/24 10:38
APTT 36.9 Sec (23.4-35.0) H 10/12/24 10:38
Vital Signs
Vital Signs
Temp Pulse Resp BP Pulse Ox
98 F 60 18 110/59 99
10/13/24 00:00 10/13/24 01:00 10/13/24 01:00 10/13/24 01:00 10/13/24 01:00
CT Intake/Output/Weight
10/12/24 10/12/24 10/13/24
06:59 18:59 06:59
Intake Total 1540.1 / 2057.8 517.7 / 2057.8
Output Total 805 / 1125 320 / 1125
Balance 735.1 / 932.8 197.7 / 932.8
SaO2: 99
Physical Exam
-
General: Awake and AOx3
Cardiovascular: Regular rate & rhythm, No Murmurs and Rub
Respiratory: Decreased Breath Sounds
Sternum: Stable
Incision: Clean, Dry and Intact
Extremities: Other (trace edema, 1+ DPs b/l)
Abdomen: soft, +decreased bowel sounds, nondistended, nontender
Data Reviewed
-
Lab Results: Results Reviewed
Medications: Active Meds Reviewed
Chest X-Ray: Report Reviewed and Image Reviewed
ECG: Report Reviewed and Image Reviewed
[2024-10-13] MEDS: TYLENOL 1000 MG PO ×3 (06:12→21:29)
[2024-10-13 06:17] LABS: Glucose - Point of Care 110 mg/dl (70-99)
--- NOTE | 2024-10-13 06:26 | PTCARENOTE ---
pt became hypotensive w SBP 60's while sitting upright for CXR. Pt c/o dizziness and tingling to hands. Head lowered, levophed dose adjusted, hypotension resolved. Pt to remain in bed for now. Bed scale weight obtained. CT PA made aware.
[2024-10-13 08:18] LABS: Glucose - Point of Care 86 mg/dl (70-99)
[2024-10-13] MEDS: BACTROBAN 2% OINTMENT 1 APPLIC NASAL ×2 (08:26→20:27)
[2024-10-13] MEDS: LIDOCAINE 4% PATCH 1 PATCH TOPICAL (08:26)
[2024-10-13] MEDS: PROTONIX 40 MG PO (08:28)
[2024-10-13] MEDS: NEURONTIN 100 MG PO ×3 (08:28→21:29)
[2024-10-13] MEDS: LOW STRENGTH ASPIRIN 81 MG PO (08:28)
[2024-10-13] MEDS: MAGNESIUM OXIDE 500 MG PO ×2 (08:28→20:26)
[2024-10-13] MEDS: SENOKOT-S 1 TABLET PO ×2 (08:28→20:26)
--- NOTE | 2024-10-13 08:30 | W.PN.INTV ---
Today's Communication / Plan
Recommendations
Up OOB as tolerated
Encourage incentive spirometer use
Pain control
Cardiac rehab consult
Outpatient pulmonary/sleep office follow-up
Titrate down supplemental O2 flow rate to keep saturations >90 does 94%
If resting saturations are <96% on room air then check ambulatory pulse oximetry prior to discharge
Patient has been downgraded to CVICU�telemetry status. No additional recommendations at this time - Client Support Professional/Pulmonary service will now sign off. Please reconsult if there are any additional questions/concerns, or if patient's respiratory
status deteriorates.
Assessment
-
Assessment: 74-year-old female former tobacco smoker ([id number], quit 2001) with a past medical history of moderate�severe aortic stenosis, severe TIAN on auto CPAP, uterine fibroids s/p hysteroscopy with resection, mitral regurgitation, hiatal
hernia, cataracts, paroxysmal A-fib on flecainide, and osteoarthritis who presents with surgical aortic valve replacement. She is known to the cardiothoracic surgery service with last visit on 09/14/[address] Merritt. She has a history of known
progressive aortic valve stenosis. Her last echocardiogram was from 06/04/2024 showing moderate�severe aortic stenosis with a peak gradient of 63 mmHg with a mean of 35 mmHg. Left heart catheterization from 06/07/2024 showed left-sided heart failure
with PCWP 24 mmHg, CO/CI: 4.2/2.2, respectively, with an aortic valve gradient of 33 mmHg with an ESTUARDO of 0.83 cm�. LHC also showed nonobstructive CAD with a left dominant system. She endorses fatigue with shortness of breath and satisfied stage D
symptomatology for intervention. Risks and benefits of surgical aortic valve replacement were discussed and she agreed for intervention. On 10/12/2024, she underwent surgical aortic valve replacement with a 23 mm biological valve as well as a left
atrial appendage exclusion with a 35mm clip. There were no complications and she was transferred to the CVICU for further care. Client Support Professional services consulted for additional management/recommendations
Chronic conditions IS CONSULTANT: Uterine fibroids s/p hysteroscopy with resection, lichen planus (resolved), hypothyroidism, hypercholesterolemia, moderate-severe aortic stenosis, hypertension, mitral regurgitation, hiatal hernia, osteoarthritis, cataracts,
paroxysmal A-fib on flecainide, former tobacco smoker (99-[id number]-[id number] history, quit 2001), TIAN on CPAP
Impression:
#Symptomatic aortic valve stenosis s/p surgical aortic valve replacement with 23 mm biological valve + left atrial appendage exclusion with 35mm clip (POD #1)
#Acute anemia
#TIAN on CPAP
#Uterine fibroids
#Hypertension
#Hyperlipidemia
#Thyroid disease
#Nonobstructive CAD
#Former tobacco use (1�2 PPD x 30 years, quit 2001)
#Mild MR with moderate to severe mitral annular calcification
#History of diverticulosis
Plan:
Patient was successfully extubated on 10/12/2024 to nasal cannula, and is currently on 2 L/min nasal cannula saturating 96%
Titrate supplemental O2 flow rate to maintain SpO2 >90-94%
prn nebulized bronchodilators � not currently bronchospastic
Encourage incentive spirometer use 10 x per hour for at least 4 hours a day
Maintain MAP>65
Replete electrolytes with K>4, Mg>2
Monitor chest tube output (mediastinal chest tubes x2)
Monitor hemoglobin
Monitor platelet count and coags
Transfuse blood products as needed to maintain Hb>7g/dL, plt>50k (given post-operative status)
CT surgery managing chest tubes
Monitor blood sugar to maintain euglycemia with goal BG 140-180
Insulin drip has now been DC'd; recommend to use ISS to keep BG at goal as above
Aspiration precautions
DVT prophylaxis
Early nutrition
Early mobilization
Of note, patient will need to continue with follow-up with our [facility] office as last visit was on 12/18/2023 with Shala Sami, [employer]FF due to her history of severe TIAN on auto-CPAP.
Patient has been downgraded to CVICU�telemetry status. No additional recommendations at this time - Client Support Professional/Pulmonary service will now sign off. Thank you for allowing us to be involved in the care of this patient. Please reconsult if there
are any additional questions/concerns, or if patient's respiratory status deteriorates.
Total time spent today was 57 minutes for this encounter. Time includes reviewing laboratory test/imaging results, reviewing pertinent medical records, obtaining and reviewing medical history, performing an appropriate exam, ordering medications,
tests and procedures. Time also includes documentation of this encounter, coordinating patient care and communicating with other healthcare professionals. Total time does not include separately billed tests performed on this date of service.
Subjective Dataa
Subjective Data
Date of Service:
Date of Service: October 13, 2024
Chief Complaint: Client Support Professional Follow Up
Subjective:
Patient was seen and evaluated today at bedside. Endorses chest pain where her operation was but otherwise denies shortness of breath, FLEMING, abdominal pain, nausea, fevers or chills. Currently, heart rate 70, BP 93/50 and saturating 96% on 2 L/min
nasal cannula. Mediastinal chest tubes x [address]
Review of Systems
General: Other (Negative unless mentioned above)
Objective Data
Data Reviewed
Vital Signs / I&O / Oxygen:
Vital Signs
Temp Pulse Resp BP Pulse Ox
99 F 72 15 106/42 95
10/13/24 08:00 10/13/24 08:30 10/13/24 08:30 10/13/24 08:30 10/13/24 08:15
Intake and Output
10/12/24 10/13/24 10/14/24
06:59 06:59 06:59
Intake Total 2149.4 / 2171.7 190.8 / 190.8
Output Total 1370 / 1405 75 / 75
Balance 779.4 / 766.7 115.8 / 115.8
SaO2 [SIMV] 99
SaO2 95
Nasal Cannula flow liters per 2
minute
Physical Exam
General: Respiratory Distress (negative), Comfortable, Pain (Postoperative chest pain), Chills (negative) and Sweats (negative)
HEENT: Normocephalic and Anicteric
Cardiovascular: S1-S2 and Peripheral Edema (negative)
Respiratory: Wheeze (negative), Crackles (negative), Rhonchi (negative), Non-Labored Respirations, Stridor (negative) and Chest Tube (Mediastinal chest tubes x 2 )
GI: Soft, Non Distended, Non Tender and Normal Bowel Sounds
Neurology: AO x 3 and Tremors (negative)
Skin: Warm, Dry, Jaundice (negative) and Rash (negative)
Labs/Micro/Reports
Lab Data
10/13/24 03:07
10/13/24 03:07
Laboratory Results
10/12/24 10/12/24
10:38 15:01
PT 17.0 H
INR 1.35
APTT 36.9 H
pH 7.38 7.39
pCO2 42 H 41 H
pO2 183 H 174 H
HCO3 24.8 24.8
O2 Delivery Level Vent
--- NOTE | 2024-10-13 08:40 | W.PN.CD ---
Today's Communication / Plan
-
-Junctional rhythm postoperatively; currently being atrial paced.
-Clinically stable; continue routine postsurgical care as directed by CT Surgery.
Impression / Plan
-
IMPRESSION/PLAN: 74F with frequent idiopathic PVCs, mild mitral regurgitation, dyslipidemia, hypothyroidism, TIAN on CPAP, former cigarette smoker, and severe aortic stenosis presents for SAVR
Outpatient supervisory examiner: Dr. Britt
Severe aortic stenosis status post surgical bioprosthetic aortic valve replacement (23 mm Tsai Inspiris Resilia) on 10/12/[address] Merritt
-Left atrial appendage exclusion with 35 mm clip
-Mild BRANDEE after replacement coming off bypass which improved with volume and afterloading
-Pre and post LVEF 65% without RWMA
-Postoperative MG 6 mmHg
-Junctional rhythm postoperatively; currently being atrial paced.
-Clinically stable; continue routine postsurgical care as directed by CT Surgery.
Hypertension:
-Blood pressure stable/controlled.
PVCs
-9% burden on outpatient monitoring
-She did not tolerate beta-ismael due to symptomatic bradycardia
-Was on flecainide as an outpatient; could ultimately need permanent pacemaker.
Postoperative anemia, expected, transfusions per CT surgery
Dyslipidemia, on atorvastatin
Former cigarette smoker, continue cessation recommended
Hypothyroidism on Tirosint
SUBJECTIVE:
No major events overnight. Patient extubated. No cardiac complaints this a.m.
DATA:
Cardiac catheterization, 06/07/2024:
CONCLUSIONS
1. Right heart catheterization demonstrates elevated right and left ventricular filling pressures, moderate post-capillary pulmonary hypertension, and reduced cardiac output and index with elevated SVR. Of note, calculated stroke volume is normal in
setting of bradycardia.
2. Simultaneous pressure measurement of AO and LV with Сергей catheter demonstrates normal flow, moderate-severe with mean pressure gradient 33 mmHg and ESTUARDO 0.83 cm2 by [place].
3. Coronary angiography demonstrates non-obstructive coronary artery disease in a left dominant system.
Physical Exam
Vital Signs/Labs
Vital Signs
Temp Pulse Resp BP Pulse Ox
99 F 72 15 106/42 95
10/13/24 08:00 10/13/24 08:30 10/13/24 08:30 10/13/24 08:30 10/13/24 08:15
10/12/24 10/13/24 10/14/24
06:59 06:59 06:59
Actual Weight 80.1 kg 86.8 kg
10/13/24 03:07
10/13/24 03:07
PT 17.0 Sec (11.4-14.6) H 10/12/24 10:38
INR 1.35 10/12/24 10:38
APTT 36.9 Sec (23.4-35.0) H 10/12/24 10:38
Magnesium 2.3 mg/dl (1.6-2.3) 10/13/24 03:07
Physical Exam
Constitutional: No acute distress and Comfortable
EENT: Anicteric and Moist mucous membranes
Cardiovascular: Rhythm & rate is regular, Pedal edema is absent, Systolic murmur absent and S1S2 is normal
Respiratory: Respiratory effort normal and Lungs clear to auscul.
GI: Soft
Neuro/Psych: AO x 3
Other: Skin (Warm, dry, intact)
Data Reviewed
-
Date of Service: October 13, 2024
EKG: Tracing Personally Visualized and interpreted (Telemetry: Atrial paced)
Medical Tests (PFT, Pathology etc): Discussed with Nurse
Labs: Labs Reviewed by me
Critical Care Time (in minutes): 35
[2024-10-13] MEDS: NSS IV (09:39)
[2024-10-13] MEDS: LR 500 IV (09:41)
[2024-10-13 10:06] LABS: Glucose - Point of Care 103 mg/dl (70-99)
--- NOTE | 2024-10-13 10:08 | PTCARENOTE ---
Patient received from elevator tender resting in bed, sleepy but arousable. A-paced via cm, SaO2 @ 97% on 2lnc. RIJ Cordis w/kvo. Epicardial A+V wires to pulse generator. Fay catheter to gravity. Mediastinal chest tubes x 2, Y-connected, no air leak
noted. All procedural sites stable. Dr. Merritt and CT team to bedside, patient updated to plan of care for the day, in agreement. See work list for full assessment and interventions performed.
--- NOTE | 2024-10-13 10:44 | W.PN.ANS.POP ---
Anesthesia Post Operative
- Anesthesia Post Op Note
Vital Signs Stable-See Nursing Note: Yes (pt continues on Levophed.)
Airway Patent: Yes
Adequate Pain Control: Yes
Change in Mental Status: No
Current Postoperative Nausea & Vomiting: No
Anesthesia Complications: No
General Anesthetic Recall: No
Unplanned Admission: No
Post Op Hydration Adequate: Yes
[2024-10-13 10:56] LABS: Glucose - Point of Care 109 mg/dl (70-99)
[2024-10-13] MEDS: ZOFRAN 4 MG IV (12:05)
--- NOTE | 2024-10-13 12:07 | PTCARENOTE ---
VS obtained, stable. [place] d/c'd as ordered. Patient assisted oob to chair, tolerated well. at bedside, perusing menu.
--- NOTE | 2024-10-13 12:24 | CM ---
Chart reviewed. Patient is independent of ADLS, lives with her and son in a 2 [address], 1st floor set up, 4 JOSE, 0 DME. Plan is for the patient to return home with CT Transitional RN. CM to follow
[2024-10-13] MEDS: FERRLECIT 110 MG IV (13:30)
[2024-10-13] MEDS: ALBUMIN 5% 250 IV (15:01)
--- NOTE | 2024-10-13 16:23 | PTCARENOTE ---
VS obtained, assessment stable. Patient remains oob in chair, states pain controlled. Dinner ordered.
[2024-10-13] MEDS: LIPITOR 40 MG PO (17:59)
[2024-10-13 18:02] LABS: Glucose - Point of Care 186 mg/dl (70-99)
[2024-10-13 18:02] LABS: Glucose - Point of Care 189 mg/dl (70-99)
[2024-10-13] MEDS: LEXAPRO 20 MG PO (18:11)
[2024-10-13] MEDS: NOVOLOG FLEXPEN-MODERATE RESISTANCE 1 UNITS SC (18:25)
[2024-10-13] MEDS: NON-FORMULARY ITEM 100 MCG PO (20:26)
--- NOTE | 2024-10-13 20:44 | PTCARENOTE ---
Assumed care of pt from dayshift RN. Walking rounds completed. Pt AAOx3. Pt assisted from the chair to the bed w/ assist x2. Pt 100% A-paced on the tele monitor. HR 70. Temporary epicardial A/V wires intact and set to AAI 70/15/8. V-wire insulated.
BP 104/81. MAP 87. Palpable pulses throughout. Trace edema. Pt on 2 L NC. POX 99%. Mediastinal CTx2 to -20 suction, no airleak noted at this time, and output WNL. Deep breathing and IS encouraged. Occasional cough. Abdomen soft/nontender. +BS.
Intermittent nausea. Fay catheter C/D/I and draining yellow urine. Sternal incision approximated and [employer]. Right IJ cordis and PIV C/D/I. See worklist for full nursing assessment and interventions. Call gaytan within reach.
[2024-10-14] VITALS (42 sets, daily range): BP systolic 85–116; BP diastolic 42–97; PULSE 54–72; O2SAT 98; BMI 29.0
--- NOTE | 2024-10-14 00:11 | PTCARENOTE ---
No acute change in assessment. Pt 100% A-paced on the tele monitor. HR 70. BP 103/52. MAP 68. Pt on CPAP machine w/ 2 L O2. POX 91-97%. Mediastinal x2 CT assessment unchanged from original. Fay catheter C/D/I and draining yellow urine >30ml/hr. No
c/o pain at this time. Pt repositioned in bed. Call gaytan within reach.
[2024-10-14] MEDS: TORADOL 15 MG IV ×2 (03:17→21:58)
--- NOTE | 2024-10-14 03:30 | PTCARENOTE ---
Pt reassessed. CTPA at bedside. Temporary pacer paused. EKG obtained. Pt sinus rhythm to sinus germaine. BP tolerated. Pacer settings changed by CTPA to AAI 56/15/0.4. CT assessment unchanged. POX 97%. Fay catheter C/D/I and draining yellow urine
>30ml/hr. Labs drawn and sent. See MAR for pain medication administration. Call gaytan within reach.
[2024-10-14 03:38] LABS: Hemoglobin 6.8 g/dL (12.0-16.0); Mean Corp Hgb Conc. 32.4 g/dL (33.0-37.0); Mean Corpuscular Hgb 29.7 pg (27.0-31.0); Mean Corpuscular Volume 91.7 fL (81.0-99.0); Mean Platelet Volume 11.6 fL (7.4-10.4); Platelet Count 114 10^3/uL (130-400); Red Blood Cell Count 2.29 10^6/uL (4.20-5.40); White Blood Cell Count 9.4 10^3/uL (4.8-10.8)
--- NOTE | 2024-10-14 03:55 | W.PN.CT ---
Today's Communication / Plan
-
-pod #2
-no issues overnight
-a-paced @ 70 overnight (underlying rhythm is nsr 60 bpm). BP and UO were lower when hr was @ 60 bpm and improved with pacing @70 bpm.
-preop rhythm was nsr 49 bpm. Hx of BB intolerance
-CT output: 2 meds 65/185 in 1224 hrs
-H/H 6.8/21.0 today (got at least 2L of IVF since OR for hypotension). Hypotensive this am 88/53 and felt dizzy when sat up in bed-- ? 1pRBC
-current meds (ASA, Lipitor, Protonix, iv iron). Not on BB or Amio d/t hx pre-existing bradycardia 40s
-encourage IS, OOB
Assessment / Plan
-
- Severe symptomatic - s/p Surgical aortic valve replacement [23mm biological valve Tsai Inspiris Resilia]; Left atrial appendage exclusion [35 mm clip] by Dr. Merritt on 10/12/24, pod #2
- Intraop BOBBY: LVEF preop and postop 65% with no regional wall motion abnormalities. She had a mild to moderate degree of left ventricular hypertrophy, small LVOT with a hockey-stick shaped outflow tract. Initially coming off of cardiopulmonary
bypass, she had a mild to moderate degree of systolic anterior motion of the mitral valve leaflets. This improved with volume loading and afterload. Her SANIYA was verified to be free of any thrombus or debris preop and found to be totally occlusive
postop. She was in a junctional rhythm after surgery.
- Uterine fibroids
- Hyperlipidemia
- Hypertension
- Hypothyroid disease
- Osteoarthritis
- Nonobstructive coronary artery disease
- Mild mitral valve insufficiency with moderately severe mitral annular calcification
- Diverticulosis
- Former tobacco use 1 to 2 packs/day for 30 years
- Few scattered <5 mm pulmonary nodules b/l and calcified ganulomas on left on chest CT
- Preop bradycardia 49 bpm (not on AVN blocking meds preop)
- Acute postop blood loss anemia - no bleeding
- Acute postop atelectasis
- Acute postop hypovolemia with subsequent hypervolemia
Discussed patient care with: Nursing and Care Team
Subjective
Procedure
- s/p Surgical aortic valve replacement [23mm biological valve Tsai Inspiris Resilia]; Left atrial appendage exclusion [35 mm clip] by Dr. Merritt on 10/12/24
-
Date of Service: October 14, 2024
Objective Data
-
PT 17.0 Sec (11.4-14.6) H 10/12/24 10:38
INR 1.35 10/12/24 10:38
APTT 36.9 Sec (23.4-35.0) H 10/12/24 10:38
Vital Signs
Vital Signs
Temp Pulse Resp BP Pulse Ox
100 F 70 16 103/52 93
10/14/24 00:10 10/14/24 02:00 10/14/24 02:00 10/14/24 00:10 10/14/24 02:00
CT Intake/Output/Weight
10/13/24 10/13/24 10/14/24
06:59 18:59 06:59
Intake Total 609.3 / 2171.7 1657.8 / 1727.8 70 / 1727.8
Output Total 565 / 1405 450 / 1145 695 / 1145
Balance 44.3 / 766.7 1207.8 / 582.8 -625 / 582.8
SaO2: 93
Physical Exam
-
General: Awake and AOx3
Cardiovascular: Regular rate & rhythm, No Murmurs and Rub
Respiratory: Decreased Breath Sounds
Sternum: Stable
Incision: Clean, Dry and Intact
Abdomen: soft, +decreased bowel sounds, nondistended, nontender
Extremities: Other (trace edema, 1+ DPs b/l)
Data Reviewed
-
Lab Results: Results Reviewed
Medications: Active Meds Reviewed
Chest X-Ray: Report Reviewed and Image Reviewed
ECG: Report Reviewed and Image Reviewed
[2024-10-14 04:10] LABS: Blood Urea Nitrogen 24 mg/dl (7-17); Calcium 8.1 mg/dl (8.4-10.2); Carbon Dioxide 28 mmol/L (22-30); Chloride 100 mmol/L (98-107); Estimated Creatinine Clearance 70 ml/min; Glucose 120 mg/dl (70-99); Magnesium 2.5 mg/dl (1.6-2.3); Potassium 4.7 mmol/L (3.5-5.1); Sodium 134 mmol/L (135-145); eGFR > 60.00
--- NOTE | 2024-10-14 05:04 | PTCARENOTE ---
UO dropped slightly to ~25-30ml/hr. CTPA aware.
[2024-10-14] MEDS: NSS 500 IV (05:41)
[2024-10-14] MEDS: TYLENOL 1000 MG PO ×3 (05:44→21:58)
[2024-10-14] MEDS: NON-FORMULARY ITEM 100 MCG PO (05:45)
--- NOTE | 2024-10-14 06:15 | PTCARENOTE ---
Pt assisted to sit at edge of bed. Pt felt slightly lightheaded/dizzy. BP 88/53. Pt laid back down in bed. Bed weight obtained. CTPA aware. BP improved to 94/63.
[2024-10-14] MEDS: NOVOLOG FLEXPEN-MODERATE RESISTANCE SC (08:35)
--- NOTE | 2024-10-14 08:35 | W.PN.UPDATE ---
Update Note
Progress Note Update
Transfused 1 PRBC for Hb 6.9. SB 50s (baseline) under a-paced rhythm. Per d/w Dr. Merritt, 2 atrial wires and 1 bipolar epicardial ventricular wire removed without difficulty. Bedrest x 1 hour and VS [id number] x 4.
--- NOTE | 2024-10-14 08:57 | PTCARENOTE ---
Patient received from filling separator resting in bed, sleepy but arousable, AAO x 3, ORTIZ. RIJ Cordis w/kvo infusing. A-paced via cm w/temp pacer set to AAI 70/15. Mediastinal chest tubes x 2, Y-connected, no leak appreciated. Fay catheter to gravity.
All procedural sites stable. Dr. Merritt and team to bedside, patient updated to plan of care for the day, in agreement. See work list for full assessment and interventions performed.
[2024-10-14] MEDS: LIDOCAINE 4% PATCH TOPICAL (09:11)
--- NOTE | 2024-10-14 09:28 | W.PN.CD ---
Today's Communication / Plan
-
-Temporary wires removed this morning; currently in sinus rhythm with heart rate in 50s-60s.
-Being transfused 1 unit of blood for anemia.
-Continue postsurgical care as directed by CT Surgery.
Impression / Plan
-
IMPRESSION/PLAN: 74F with frequent idiopathic PVCs, mild mitral regurgitation, dyslipidemia, hypothyroidism, TIAN on CPAP, former cigarette smoker, and severe aortic stenosis presents for SAVR
Outpatient protective signal operator: Dr. Britt
Severe aortic stenosis status post surgical bioprosthetic aortic valve replacement (23 mm Tsai Inspiris Resilia) on 10/12/[address] Merritt
-Left atrial appendage exclusion with 35 mm clip
-Mild BRANDEE after replacement coming off bypass which improved with volume and afterloading
-Pre and post LVEF 65% without RWMA
-Postoperative MG 6 mmHg
-Temporary wires removed this morning; currently in sinus rhythm with heart rate in 50s-60s.
-Being transfused 1 unit of blood for anemia.
-Continue postsurgical care as directed by CT Surgery.
Hypertension:
-Blood pressure is low, but relatively stable.
PVCs
-9% burden on outpatient monitoring
-She did not tolerate beta-ismael due to symptomatic bradycardia
-Was on flecainide as an outpatient; could ultimately need permanent pacemaker.
Postoperative anemia, expected, transfusions per CT surgery
Dyslipidemia, on atorvastatin
Former cigarette smoker, continue cessation recommended
Hypothyroidism on Tirosint
SUBJECTIVE:
No major cardiac events overnight. No major cardiac complaints this a.m.
DATA:
Cardiac catheterization, 06/07/2024:
CONCLUSIONS
1. Right heart catheterization demonstrates elevated right and left ventricular filling pressures, moderate post-capillary pulmonary hypertension, and reduced cardiac output and index with elevated SVR. Of note, calculated stroke volume is normal in
setting of bradycardia.
2. Simultaneous pressure measurement of AO and LV with [place] catheter demonstrates normal flow, moderate-severe with mean pressure gradient 33 mmHg and ESTUARDO 0.83 cm2 by [place].
3. Coronary angiography demonstrates non-obstructive coronary artery disease in a left dominant system.
Physical Exam
Vital Signs/Labs
Vital Signs
Temp Pulse Resp BP Pulse Ox
98.4 F 56 14 97/48 97
10/14/24 08:22 10/14/24 08:22 10/14/24 08:22 10/14/24 08:15 10/14/24 08:51
10/13/24 10/14/24 10/15/24
06:59 06:59 06:59
Actual Weight 86.8 kg 84 kg
10/14/24 03:22
10/14/24 03:22
PT 17.0 Sec (11.4-14.6) H 10/12/24 10:38
INR 1.35 10/12/24 10:38
APTT 36.9 Sec (23.4-35.0) H 10/12/24 10:38
Magnesium 2.5 mg/dl (1.6-2.3) H 10/14/24 03:22
Physical Exam
Constitutional: No acute distress and Comfortable
EENT: Anicteric and Moist mucous membranes
Cardiovascular: Rhythm & rate is regular, Pedal edema is absent, Systolic murmur absent and S1S2 is normal
Respiratory: Respiratory effort normal and Lungs clear to auscul.
GI: Soft
Neuro/Psych: AO x 3
Other: Skin (warm, dry, intact)
Data Reviewed
-
Date of Service: October 14, 2024
EKG: Tracing Personally Visualized and interpreted (Sinus rhythm)
Labs: Labs Reviewed by me
Critical Care Time (in minutes): 35
[2024-10-14] MEDS: LOW STRENGTH ASPIRIN 81 MG PO (09:35)
[2024-10-14] MEDS: BACTROBAN 2% OINTMENT 1 APPLIC NASAL ×2 (09:35→19:34)
[2024-10-14] MEDS: MAGNESIUM OXIDE 500 MG PO ×2 (09:35→19:35)
[2024-10-14] MEDS: SENOKOT-S 1 TABLET PO ×2 (09:35→19:36)
[2024-10-14] MEDS: PROTONIX 40 MG PO (09:35)
[2024-10-14] MEDS: NEURONTIN 100 MG PO ×3 (09:35→21:58)
--- NOTE | 2024-10-14 10:56 | PTCARENOTE ---
Epicardial temp pacing wires d/c'd by STEVEN Giang. Bedrest maintained x 1 hour, VS obtained per protocol. After one hour, mediastinal chest tubes d/c'd by this RN. Patient tolerated all procedures well, VS stable.
[2024-10-14] MEDS: LASIX 40 MG IV (11:34)
--- NOTE | 2024-10-14 11:38 | PTCARENOTE ---
VS obtained, assessment stable. Patient resting oob in chair, at bedside.
[2024-10-14] MEDS: FERRLECIT 110 MG IV (13:56)
[2024-10-14 14:18] LABS: Hematocrit 23.4 % (37.0-47.0); Hemoglobin 7.8 g/dL (12.0-16.0); Mean Corp Hgb Conc. 33.3 g/dL (33.0-37.0); Mean Corpuscular Hgb 30.5 pg (27.0-31.0); Mean Corpuscular Volume 91.4 fL (81.0-99.0); Platelet Count 102 10^3/uL (130-400); Red Blood Cell Count 2.56 10^6/uL (4.20-5.40); Red Cell Dist. Width 14.6 % (11.5-14.5); White Blood Cell Count 8.5 10^3/uL (4.8-10.8)
--- NOTE | 2024-10-14 16:02 | PTCARENOTE ---
VS obtained, assessment stable. Patient in chair, resting comfortably.
[2024-10-14] MEDS: LEXAPRO 20 MG PO (16:59)
[2024-10-14] MEDS: LIPITOR 40 MG PO (16:59)
--- NOTE | 2024-10-14 19:30 | PTCARENOTE ---
Received pt from [facility]. Walking rounds completed. Pt assessment performed in chair. Pt is AAOx4. No neuro deficits noted. NSR on monitor. HR 67, B/P 113/97. Bi-Lateral UE and LE pulses palpable. Negative edema. IJ cordis intact, no redness or
edema noted. Lungs clear, diminished in bases. POX 97% RA. I/S 750. NBS, abdomen soft, round. Pt denies tenderness. Pt voiding clear, yellow urine in bathroom. Sternal incision FIGURE REFINISHER AND REPAIRER, approximated, surgical glue present. C/T dressing C/D/I. Pt
complaining of labia irritation. Slight redness noted. barrier ointment provided.
--- NOTE | 2024-10-14 19:30 | PTCARENOTE ---
Received pt from [facility]. Walking rounds completed. Pt assessment performed in chair. Pt is AAOx4. No neuro deficits noted. NSR on monitor. HR 67, B/P 113/97. Bi-Lateral UE and LE pulses palpable. Negative edema. IJ cordis intact, no redness or
edema noted. Lungs clear, diminished in bases. POX 97% RA. I/S 750. NBS, abdomen soft, round. Pt denies tenderness. Pt voiding clear, yellow urine in bathroom. Sternal incision TILE CLASSIFIER, approximated, surgical glue present. C/T dressing C/D/I. Pt
complaining of labia irritation. Slight redness noted, barrier ointment provided. Discussed plan of care with pt. Pt agrees with plan.
--- NOTE | 2024-10-14 23:09 | PTCARENOTE ---
VSS. Pt in NSR on monitor. HR 67, B/'P 113/97. Pain management provided (See MAR). PM care provided. Pt resting in bed. Will continue to monitor pt needs.
[2024-10-15] VITALS (9 sets, daily range): BP systolic 100–142; BP diastolic 52–66; PULSE 69; O2SAT 97–98; BMI 29.1
[2024-10-15 03:57] LABS: Hematocrit 22.8 % (37.0-47.0); Hemoglobin 7.3 g/dL (12.0-16.0); Mean Corpuscular Hgb 29.9 pg (27.0-31.0); Mean Corpuscular Volume 93.4 fL (81.0-99.0); Mean Platelet Volume 12.1 fL (7.4-10.4); Platelet Count 98 10^3/uL (130-400); Red Blood Cell Count 2.44 10^6/uL (4.20-5.40); Red Cell Dist. Width 14.6 % (11.5-14.5); White Blood Cell Count 8.1 10^3/uL (4.8-10.8)
[2024-10-15 04:17] LABS: Blood Urea Nitrogen 22 mg/dl (7-17); Calcium 7.9 mg/dl (8.4-10.2); Carbon Dioxide 32 mmol/L (22-30); Chloride 102 mmol/L (98-107); Estimated Creatinine Clearance 69 ml/min; Glucose 106 mg/dl (70-99); Magnesium 2.5 mg/dl (1.6-2.3); Potassium 4.4 mmol/L (3.5-5.1); Sodium 136 mmol/L (135-145); eGFR > 60.00
--- NOTE | 2024-10-15 04:18 | PTCARENOTE ---
VSS. NSR with PAC's on monitor. HR 63, B/P 105/66. Morning labs obtained and sent. AM care provided. Pt resting in bed. Will continue to monitor pt needs.
--- NOTE | 2024-10-15 04:32 | W.PN.CT ---
Today's Communication / Plan
-
-pod #3
-no issues overnight, in nsr 60s
-felt better overall, less fatigue after getting blood 10/14
-diuresed with 40 iv Lasix on 10/14 (UO 1030cc). Bicarb is elevated today - 32
-follow platelets - 98K today
-weaned off O2 - pOx 93-97% RA
-current meds (ASA, Lipitor, Protonix, iv iron). Not on BB or Amio d/t hx pre-existing bradycardia 40s
-encourage IS, OOB
Assessment / Plan
-
- Severe symptomatic - s/p Surgical aortic valve replacement [23mm biological valve Tsai Inspiris Resilia]; Left atrial appendage exclusion [35 mm clip] by Dr. Merritt on 10/12/24, pod #3
- Intraop BOBBY: LVEF preop and postop 65% with no regional wall motion abnormalities. She had a mild to moderate degree of left ventricular hypertrophy, small LVOT with a hockey-stick shaped outflow tract. Initially coming off of cardiopulmonary
bypass, she had a mild to moderate degree of systolic anterior motion of the mitral valve leaflets. This improved with volume loading and afterload. Her SANIYA was verified to be free of any thrombus or debris preop and found to be totally occlusive
postop. She was in a junctional rhythm after surgery.
- Uterine fibroids
- Hyperlipidemia
- Hypertension
- Hypothyroid disease
- Osteoarthritis
- Nonobstructive coronary artery disease
- Mild mitral valve insufficiency with moderately severe mitral annular calcification
- Diverticulosis
- Former tobacco use 1 to 2 packs/day for 30 years
- Few scattered <5 mm pulmonary nodules b/l and calcified ganulomas on left on chest CT
- Preop bradycardia 49 bpm (not on AVN blocking meds preop)
- Acute postop blood loss anemia - no bleeding, s/p 1 pRBC on 10/14 for Hg 6.8
- Acute postop thrombocytopenia
- Acute postop atelectasis
- Acute postop hypovolemia with subsequent hypervolemia
Discussed patient care with: Nursing and Care Team
Subjective
Procedure
- s/p Surgical aortic valve replacement [23mm biological valve Tsai Inspiris Resilia]; Left atrial appendage exclusion [35 mm clip] by Dr. Merritt on 10/12/24
-
Date of Service: October 15, 2024
Objective Data
-
Lab Results
10/15/24 03:32
10/15/24 03:32
PT 17.0 Sec (11.4-14.6) H 10/12/24 10:38
INR 1.35 10/12/24 10:38
APTT 36.9 Sec (23.4-35.0) H 10/12/24 10:38
Vital Signs
Vital Signs
Temp Pulse Resp BP Pulse Ox
98.5 F 66 16 109/52 93
10/15/24 03:38 10/14/24 23:54 10/15/24 03:38 10/14/24 23:54 10/15/24 03:38
CT Intake/Output/Weight
10/14/24 10/14/24 10/15/24
06:59 18:59 06:59
Intake Total 110 / 1777.8 480 / 480
Output Total 945 / 1465 1025 / 1025
Balance -835 / 312.8 -545 / -545
SaO2: 93
Physical Exam
-
General: Awake and AOx3
Cardiovascular: Regular rate & rhythm, No Murmurs and No Rub
Respiratory: Decreased Breath Sounds
Sternum: Stable
Incision: Clean, Dry and Intact
Extremities: Other (trace edema, 1+ DPs b/l)
Data Reviewed
-
Lab Results: Results Reviewed
Medications: Active Meds Reviewed
Chest X-Ray: Report Reviewed and Image Reviewed
ECG: Report Reviewed and Image Reviewed
[2024-10-15] MEDS: NON-FORMULARY ITEM 100 MCG PO (05:19)
[2024-10-15] MEDS: TYLENOL 1000 MG PO ×3 (05:19→21:22)
--- NOTE | 2024-10-15 08:00 | PTCARENOTE ---
received pt from previous rn. pt AAOx4, VSS, NSR per tele monitor HR 60s, +pulses, pox 97% on RA, lung sounds clear, diminished, IS 2000, +bs, voids spontaneously, ambulates in room, all surgical incision intact, piv flushes, RIJ cordis infusing
KVO, plan of care discussed questions encouraged.
[2024-10-15] MEDS: NEURONTIN 100 MG PO ×3 (09:06→21:22)
[2024-10-15] MEDS: LOW STRENGTH ASPIRIN 81 MG PO (09:06)
[2024-10-15] MEDS: BACTROBAN 2% OINTMENT 1 APPLIC NASAL ×2 (09:06→19:54)
[2024-10-15] MEDS: MAGNESIUM OXIDE 500 MG PO ×2 (09:06→19:54)
[2024-10-15] MEDS: PROTONIX 40 MG PO (09:07)
[2024-10-15] MEDS: SENOKOT-S 1 TABLET PO ×2 (09:07→19:57)
[2024-10-15] MEDS: LIDOCAINE 4% PATCH 1 PATCH TOPICAL (09:07)
--- NOTE | 2024-10-15 09:08 | W.PN.CD ---
Today's Communication / Plan
-
-Remains in sinus rhythm with heart rate in 60s-70s.
-Transfused 1 unit of blood yesterday for anemia; slight decline in hemoglobin from 7.8 to 7.3--continue to monitor.
-Avoid any rate-controlling medications or antiarrhythmics for now; notify EP Cardiology if any conduction issues.
-Continue routine postsurgical care as directed by CT Surgery.
Impression / Plan
-
IMPRESSION/PLAN: 74F with frequent idiopathic PVCs, mild mitral regurgitation, dyslipidemia, hypothyroidism, TIAN on CPAP, former cigarette smoker, and severe aortic stenosis presents for SAVR
Outpatient gps field data collector: Dr. Britt
Severe aortic stenosis status post surgical bioprosthetic aortic valve replacement (23 mm Tsai Inspiris Resilia) on 10/12/[address] Merritt
-Left atrial appendage exclusion with 35 mm clip
-Mild BRANDEE after replacement coming off bypass which improved with volume and afterloading
-Pre and post LVEF 65% without RWMA
-Postoperative MG 6 mmHg
-Remains in sinus rhythm with heart rate in 60s-70s.
-Transfused 1 unit of blood yesterday for anemia; slight decline in hemoglobin from 7.8 to 7.3--continue to monitor.
-Avoid any rate-controlling medications or antiarrhythmics for now; notify EP Cardiology if any conduction issues.
-Continue routine postsurgical care as directed by CT Surgery.
Hypertension:
-Blood pressure is relatively stable.
PVCs
-9% burden on outpatient monitoring
-She did not tolerate beta-ismael due to symptomatic bradycardia
-Was on flecainide as an outpatient--would not resume at this time; could ultimately need permanent pacemaker.
Postoperative anemia, expected, transfusions per CT surgery
Dyslipidemia, on atorvastatin
Former cigarette smoker, continue cessation recommended
Hypothyroidism on Tirosint
SUBJECTIVE:
No major events overnight. No cardiac complaints this a.m.
DATA:
Cardiac catheterization, 06/07/2024:
CONCLUSIONS
1. Right heart catheterization demonstrates elevated right and left ventricular filling pressures, moderate post-capillary pulmonary hypertension, and reduced cardiac output and index with elevated SVR. Of note, calculated stroke volume is normal in
setting of bradycardia.
2. Simultaneous pressure measurement of AO and LV with [place] catheter demonstrates normal flow, moderate-severe with mean pressure gradient 33 mmHg and ESTUARDO 0.83 cm2 by [place].
3. Coronary angiography demonstrates non-obstructive coronary artery disease in a left dominant system.
Physical Exam
Vital Signs/Labs
Vital Signs
Temp Pulse Resp BP Pulse Ox
98.5 F 76 16 105/66 93
10/15/24 03:38 10/15/24 05:30 10/15/24 03:38 10/15/24 03:37 10/15/24 04:33
10/14/24 10/15/24 10/16/24
06:59 06:59 06:59
Actual Weight 84 kg 84.1 kg
10/15/24 03:32
10/15/24 03:32
PT 17.0 Sec (11.4-14.6) H 10/12/24 10:38
INR 1.35 10/12/24 10:38
APTT 36.9 Sec (23.4-35.0) H 10/12/24 10:38
Magnesium 2.5 mg/dl (1.6-2.3) H 10/15/24 03:32
Physical Exam
Constitutional: No acute distress and Comfortable
EENT: Anicteric
Cardiovascular: Rhythm & rate is regular, Pedal edema is absent, Systolic murmur absent and S1S2 is normal
Respiratory: Respiratory effort normal and Lungs clear to auscul.
GI: Soft and Distention absent
Neuro/Psych: AO x 3
Other: Skin (Warm, dry, intact)
Data Reviewed
-
Date of Service: October 15, 2024
EKG: Tracing Personally Visualized and interpreted (Telemetry: Sinus rhythm)
Medical Tests (PFT, Pathology etc): Discussed with Physician (CT Surgery team)
Labs: Labs Reviewed by me
Critical Care Time (in minutes): 34
[2024-10-15] MEDS: NSS IV (10:43)
[2024-10-15] MEDS: TORADOL 15 MG IV ×2 (11:10→21:22)
--- NOTE | 2024-10-15 12:39 | PTCARENOTE ---
VSS, NSR per tele monitor, HR 60s, ambulated in hallway, assessment remains unchanged
[2024-10-15] MEDS: FERRLECIT 110 MG IV (14:02)
--- NOTE | 2024-10-15 16:15 | PTCARENOTE ---
VSS, NSR per tele monitor, assessment remains unchanged otherwise.
[2024-10-15] MEDS: LEXAPRO 20 MG PO (17:42)
[2024-10-15] MEDS: LIPITOR 40 MG PO (17:42)
--- NOTE | 2024-10-15 17:50 | PTCARENOTE ---
pt ambulated in [place] w/ RN and with no c/o dizziness
--- NOTE | 2024-10-15 19:30 | PTCARENOTE ---
Received pt from [facility]. Walking rounds completed. Pt assessment performed in chair. Pt is AAOx4. No neuro deficits noted. NSR on monitor. HR 79, B/P 117/76. Bi-Lateral UE and LE pulses palpable. Negative edema. IJ cordis intact, no redness or
edema noted. Lungs clear, POX 97% RA. I/S 1500. NBS, abdomen soft, round. Pt denies tenderness. Pt voiding clear, yellow urine in bathroom. Sternal incision DWAIEN, approximated, surgical glue present. C/T dressing C/D/I. Discussed plan of care with
pt. Pt agrees with plan.
--- NOTE | 2024-10-15 20:37 | PTCARENOTE ---
Received pt from [facility]. Walking rounds completed. Pt assessment performed in chair. Pt is AAOx4. No neuro deficits noted. NSR on monitor. HR 79, B/P 117/76. Bi-Lateral UE and LE pulses palpable. Negative edema. IJ cordis intact, no redness or
edema noted. Lungs clear, POX 97% RA. I/S 1500. NBS, abdomen soft, round. Pt denies tenderness. Pt voiding clear, yellow urine in bathroom. Sternal incision DWAINE, approximated, surgical glue present. C/T dressing C/D/I. Discussed plan of care with
pt. Pt agrees with plan.
--- NOTE | 2024-10-15 23:30 | PTCARENOTE ---
VSS. NSR on monitor HR 67, B/P 111/81. PM care provided. Pt resting in bed. Will continue to monitor pt needs.
[2024-10-16 00:08] VITALS: BP 111/81
[2024-10-16 03:18] VITALS: BP 107/67
[2024-10-16 03:32] VITALS: BMI 29.2
--- NOTE | 2024-10-16 03:35 | PTCARENOTE ---
VSS. NSR with occasional PAC's on monitor. Morning labs obtained and sent. Weight obtained. Pt resting in bed. Will continue to monitor pt needs.
[2024-10-16 03:40] LABS: Ionized Calcium 1.22 mMOL/L (1.15-1.33)
[2024-10-16 03:47] LABS: Hematocrit 25.1 % (37.0-47.0); Hemoglobin 8.1 g/dL (12.0-16.0); Mean Corp Hgb Conc. 32.3 g/dL (33.0-37.0); Mean Corpuscular Hgb 29.7 pg (27.0-31.0); Mean Corpuscular Volume 91.9 fL (81.0-99.0); Mean Platelet Volume 11.4 fL (7.4-10.4); Platelet Count 131 10^3/uL (130-400); Red Blood Cell Count 2.73 10^6/uL (4.20-5.40); Red Cell Dist. Width 14.1 % (11.5-14.5); White Blood Cell Count 6.7 10^3/uL (4.8-10.8)
--- NOTE | 2024-10-16 03:47 | W.PN.CT ---
Today's Communication / Plan
-
-No major issues overnight. Hemodynamically and neurologically intact
-Off all drips
-D/C'd cordis this AM
-No rate control or antiarrhythmic meds, including Flecainide per Cardiology
-Current rhythm is NSR @ 61 bpm
-Cont. current meds (ASA, Lipitor, Protonix)
-Received 1u PRBC for hgb 6.8 on 10/14, stable @ 8.1 today
-Thrombocytopenia resolved, 98K -> 131K
-F/U 2-view cxr
-Encourage use of IS
-OOB into chair/Ambulate
-D/C home
Assessment / Plan
-
- Severe symptomatic - s/p Surgical aortic valve replacement [23mm biological valve Tsai Inspiris Resilia]; Left atrial appendage exclusion [35 mm clip] by Dr. Merritt on 10/12/24, pod #4
- Intraop BOBBY: LVEF preop and postop 65% with no regional wall motion abnormalities. She had a mild to moderate degree of left ventricular hypertrophy, small LVOT with a hockey-stick shaped outflow tract. Initially coming off of cardiopulmonary
bypass, she had a mild to moderate degree of systolic anterior motion of the mitral valve leaflets. This improved with volume loading and afterload. Her SANIYA was verified to be free of any thrombus or debris preop and found to be totally occlusive
postop. She was in a junctional rhythm after surgery.
- Uterine fibroids
- Hyperlipidemia
- Hypertension
- Hypothyroid disease
- Osteoarthritis
- Nonobstructive coronary artery disease
- Mild mitral valve insufficiency with moderately severe mitral annular calcification
- Diverticulosis
- Former tobacco use 1 to 2 packs/day for 30 years
- Few scattered <5 mm pulmonary nodules b/l and calcified ganulomas on left on chest CT
- Preop bradycardia 49 bpm (not on AVN blocking meds preop)
- Acute postop blood loss anemia - no bleeding, s/p 1 pRBC on 10/14 for Hg 6.8
- Acute postop thrombocytopenia
- Acute postop atelectasis
- Acute postop hypovolemia with subsequent hypervolemia
- Acute postop junctional rhythm
Discussed patient care with: Cardiology, Nursing, Respiratory Therapy, Pharmacy and Care Team
Subjective
Procedure
- s/p Surgical aortic valve replacement [23mm biological valve Tsai Inspiris Resilia]; Left atrial appendage exclusion [35 mm clip] by Dr. Merritt on 10/12/24
-
Date of Service: October 16, 2024
Pt c/o mild incisional pain, otherwise feel well
Objective Data
-
PT 17.0 Sec (11.4-14.6) H 10/12/24 10:38
INR 1.35 10/12/24 10:38
APTT 36.9 Sec (23.4-35.0) H 10/12/24 10:38
Vital Signs
Vital Signs
Temp Pulse Resp BP Pulse Ox
98.1 F 66 18 111/81 97
10/16/24 03:33 10/16/24 00:30 10/16/24 03:33 10/16/24 00:08 10/16/24 03:33
CT Intake/Output/Weight
10/15/24 10/15/24 10/16/24
06:59 18:59 06:59
Intake Total 480 / 960 130 / 610 480 / 610
Output Total 300 / 1325 700 / 1500 800 / 1500
Balance 180 / -365 -570 / -890 -320 / -890
SaO2: 97 (RA)
Physical Exam
-
General: Awake, Oriented and AOx3
Cardiovascular: Regular rate & rhythm, No Murmurs, No Rub and No Gallop
Respiratory: Decreased Breath Sounds (at bases, otherwise clear)
Sternum: Stable
Incision: Clean, Dry, Intact and Dressing Intact
Extremities: No Edema
Data Reviewed
-
Lab Results: Results Reviewed
Medications: Active Meds Reviewed
Chest X-Ray: Report Reviewed and Image Reviewed
ECG: Report Reviewed and Image Reviewed
[2024-10-16 03:57] LABS: Blood Urea Nitrogen 21 mg/dl (7-17); Calcium 8.4 mg/dl (8.4-10.2); Carbon Dioxide 32 mmol/L (22-30); Chloride 103 mmol/L (98-107); Estimated Creatinine Clearance 79 ml/min; Glucose 102 mg/dl (70-99); Magnesium 2.5 mg/dl (1.6-2.3); Potassium 4.7 mmol/L (3.5-5.1); Sodium 137 mmol/L (135-145); eGFR > 60.00
[2024-10-16] MEDS: KCL 40 MEQ PO (05:35)
[2024-10-16 05:36] VITALS: BP 135/60
[2024-10-16] MEDS: NON-FORMULARY ITEM 100 MCG PO (05:36)
[2024-10-16] MEDS: TYLENOL 1000 MG PO (05:36)
[2024-10-16] MEDS: LASIX 40 MG IV (05:37)
[2024-10-16 08:13] VITALS: BP 103/72
[2024-10-16] MEDS: SENOKOT-S 1 TABLET PO (08:20)
[2024-10-16] MEDS: MAGNESIUM OXIDE 500 MG PO (08:20)
[2024-10-16] MEDS: PROTONIX 40 MG PO (08:20)
[2024-10-16] MEDS: LOW STRENGTH ASPIRIN 81 MG PO (08:20)
[2024-10-16] MEDS: NEURONTIN 100 MG PO (08:20)
[2024-10-16] MEDS: BACTROBAN 2% OINTMENT 1 APPLIC NASAL (08:20)
[2024-10-16] MEDS: LIDOCAINE 4% PATCH TOPICAL (08:21)
[2024-10-16] MEDS: DIAMOX 250 MG PO (08:21)
--- NOTE | 2024-10-16 09:12 | PTCARENOTE ---
VS captured from previous RN
received pt from previous rn. pt AAOx4, VSS, NSR per tele monitor HR 60s, +pulses, pox 97% on RA, lung sounds clear, diminished, IS 2000, +bs, voids spontaneously, ambulates in room and in hallway, all surgical incision intact, piv flushes, plan of
care discussed questions encouraged.
[2024-10-16 09:55] VITALS: BP 108/65; BP 110/68; PULSE 75; O2SAT 96; O2SAT 98
[2024-10-16] MEDS: NSS IV (10:05)
--- NOTE | 2024-10-16 11:14 | W.[place]-PDMP ---
[place]-PD[place]
-
Checked the [place]- Pres[place] Drug Monitoring Program website, no red flags identified; safe to proceed with prescription.
--- NOTE | 2024-10-16 14:57 | W.DCSUMMARY ---
Discharge Summary
Discharge Data
Date of Admission: 10/12/24
Date of Discharge: 10/16/24
Total time spent discharging patient (in min): 45
-
Pending Results: No
Hospital Course
Primary care physician:
OSMAR Mercado
Outpatient well point pumping supervisor:
Dr. Reji Britt MD. [facility] cardiology
Inpatient consultants:
[facility] cardiology
Procedures:
1. Surgical aortic valve replacement with a number 23 mm biologic Tsai Inspiris valve
2. Left atrial appendage exclusion with number [address] Gilmer Merritt on 10/12/2024
Primary Diagnosis:
1. Severe aortic valve stenosis, symptomatic
2. Uterine fibroids
3. Hyperlipidemia
4. Hypertension
5. Thyroid disease
6. Osteoarthritis
7. Nonobstructive coronary artery disease
8. Mild mitral valve insufficiency with moderately severe mitral annular calcification
9. Diverticulosis
10. Former tobacco abuser 1 to 2 packs/day for 30 years
11. Acute postoperative blood loss anemia requiring transfusion with 1 unit of packed red blood cells
12. Acute postoperative thrombocytopenia
13. Acute postoperative atelectasis
14. Acute postoperative hypovolemia with subsequent hypervolemia
15. Acute postoperative junctional rhythm�resolved
Secondary Diagnoses:
Same as the above
HPI:
Patient is a 74-year-old female with known severe aortic valve stenosis. She recently became symptomatic in the form of shortness of breath with exertion and fatigue. Patient was seen in consultation by attending physician and discussed at their
multidisciplinary TAVR clinic. However, the patient desired to have a surgical aortic valve replacement. Despite her age of 74, she was an excellent functional status and was considered a low risk for surgical aortic valve replacement. Patient
was admitted electively as an outpatient and underwent the procedure described above.
Hospital course:
Patient tolerated the procedure well. She remained intubated and was recovered in the postoperative cardiovascular intensive care unit. She was extubated in a timely fashion on postoperative day 0. Patient was progressed in routine fashion.
Insulin drip was discontinued on postoperative day #1 and the patient was given 500 cc of LR for labile blood pressures. On postoperative day #2 she was transfused with 1 unit of packed red blood cells for hemoglobin of 6.9. Her temporary pacing
wires were removed and her chest tubes were later discontinued. She was diuresed with Lasix 40 mg IV x 1 with over a liter of urine output. Discussion was had with cardiology and no rate lowering agents were to be resumed due to her junctional
rhythm/bradycardia. Patient's home flecainide was not restarted. On postoperative day 4 patient remained sinus rhythm in the 60s. She was diuresed with 40 mg of IV Lasix as well as 250 mg of p.o. Diamox. Two-view chest x-ray showed no surgical
concerns. She was medically cleared to be discharged to home with a Lasix taper. We will recheck a BMP outpatient on 10/22/2024 to evaluate renal function, and a CBC to trend her hemoglobin and hematocrit.
Home medication changes:
See below
Discharge Plan
-
Patient Disposition: Home (Routine Discharge)
Discharge Diagnosis/Procedures: aortic stenosis/AVR, SANIYA clip
Condition: Fair
Diet: Low Cholesterol and Low Sodium
Activity: No strenuous activity
Driving Restrictions: Not until seen by your Dr
Bathing Restrictions: OK to Shower
Blood Work: BMP to be drawn on 10/22/24 to evaluate renal function w/ outpatient diuresis. Please send results to the office of Dr. Shaina MD. and Dr. Britt
CBC to be drawn on 10/22/24 to evaluate H and H. Please send results to the office of Dr. Shaina MD.
Other Services: Cardiac Rehab
Specialty Instructions: Weigh Daily- Call MD for wt gain/loss 3 lbs overnight/5 lbs in 1 week
Activity Restrictions/Additional Instructions:
ACTIVITY:
-No strenuous activity: no heavy lifting, pushing, pulling anything over 15 pounds for one month
-continue to use stairs as tolerated
DRIVING RESTRICTIONS:
-No driving for one month or until approved by your surgeon
WOUND CARE:
-Shower daily. Use soap & water.
-No lotions, creams or powders on incision area.
DIET:
-continue a low fat/low cholesterol diet.
-IF you are diabetic, continue carb controlled diet.
CARDIAC REHAB:
-Please make appointment to start in 5-6 weeks with your local hospital program. (See Cardiac Rehabilitation Discharge Booklet).
SPECIALTY INSTRUCTIONS:
-Weigh yourself daily. Call your physician for any weight gain/loss of 3 lbs overnight or 5 lbs in one week.
-REPORT any clicking noise or uneven appearance of your sternum to your surgeon immediately.
-If you smoke, you are instructed to quit. The [place] smoking hotline phone number is [phone]
Referrals:
CT Transitional Care Nurse [Outside] (The Cardiothoracic Transitional Care Nurse will call you to set up a visit in 1-2 days.)
[facility]. Cardiac Rehab [Outside] - 11/19/24 1:00 pm
(Cardiac Rehab Orientation appointment is on November 19 at 1pm.
The Cardiac Rehab gym is located on the first floor of the [facility].)
Keisha Tracy CRNP [Specified Professional Personl] - 11/23/24 2:20 pm
Gurpreet Ramos CRNP [Family Provider] -
Shala Gallardo CRNP [Specified Professional Personl] - As needed (Please call to arrange for outpatient follow up)
Gilmer Merritt MD [Active] - 11/15/24 1:00 pm
Additional Discharge Medication Instructions: Please pay attention to the following instructions:
Take Lasix 40 mg daily x 5 days and stop. Resume taking home dose of Lasix 20 mg daily-volume overload
Take Potassium chloride 20 meq daily x 5 days with Lasix and then stop-electrolyte replacement
Take Potassium chloride 10 meq daily starting on 10/22/24 with Lasix 20 mg daily-electrolyte replacement
Take Tramadol 25 mg PO Q6H PRN-moderate severe pain control
Take Acetaminophen 650 mg Q4H PRN-mild pain control, fever
Hold the following medications:
Lasix 20 mg daily. Resume taking on 10/22/24 with Potassium Chloride 10 meq
Stop taking the following medications:
Flecainide 50 mg BID. Discuss resuming at follow up with Cardiology, Dr. Balwinder MD.
Prescriptions:
New
acetaminophen 325 mg Tablet
650 mg PO Q4HPRN PRN (Reason: mild pain,headache,temp >101F ) Qty: 0 0RF
tramadol 50 mg Tablet
25 mg PO Q6HPRN PRN (Reason: moderate-severe pain) Qty: 30 0RF
Rx Instructions:
Ongoing pain control. Attending Dr. Gilmer Merritt MD
furosemide [Lasix] 40 mg tablet
40 mg PO DAILY Qty: 5 0RF
Rx Instructions:
Take 40 mg daily x5 day until empty. Then resume home dose of 20 mg daily.
potassium chloride 20 mEq tablet extended release
20 meq PO DAILY Qty: 5 0RF
Rx Instructions:
Take Potassium chloride 20 meq daily x5 days with Lasix and then stop.
potassium chloride 10 mEq tablet extended release
10 meq PO DAILY Qty: 30 0RF
Rx Instructions:
Take potassium chloride 10 meq daily with 20 mg of Lasix starting 10/22/24.
Continued
levothyroxine [Tirosint] 100 mcg Capsule
100 mcg PO DAILY
Vitamin D3 50mcg Gummy
2 gummy PO NOON
multivit with min-folic acid [Multivitamin Gummies] 200 mcg Tablet,Chewable
2 tab PO NOON
atorvastatin 10 mg Tablet
40 mg PO QPM
famotidine 20 mg Tablet
20 mg PO QPM
escitalopram oxalate 20 mg Tablet
20 mg PO QPM
aspirin 81 mg Tablet,Delayed Release (Dr/Ec)
81 mg PO QPM
coQ10 (ubiquinol) 100 mg Capsule
200 mg PO QPM
Held
furosemide 20 mg Tablet
20 mg PO DAILY
Hold Instructions: Resume on 10/22/24. Hold until Lasix 40 daily is finished (10/21/24). Resume taking Lasix 20 daily on 10/22/24.
Discontinued
flecainide 100 mg Tablet
50 mg PO BID
Tumeric Kimberly Black Pepper 25
250 mg PO NOON
Discharge Orders:
Discharge Patient (As Directed); Ordered 10/16/24
Ordered By: Dee Plunkett
Discharge Date and Time
Discharge Date/Time: 10/16/24 13:35
Print Language: SERBIAN
== END 2024-10-16 13:35 | disposition home or self-care (01) | DRG 220 ==
LOC: CVICU 04:54
PROVIDERS: Anesthesiology; Clinical Nurse Specialist Acute Care; Nurse Practitioner; ADMITTING PHYSICIAN Thoracic Surgery (Cardiothoracic Vascular Surgery); CONSULT PHYSICIAN Internal Medicine Critical Care Medicine; FAMILY PHYSICIAN Nurse Practitioner Adult Health
PROC: 02L70CK Occlusion of Left Atrial Appendage with Extraluminal Device, Open Approach (ICD-10-PCS; 2024-10-12)
PROC: 5A1221Z Performance of Cardiac Output, Continuous (ICD-10-PCS; 2024-10-12)
PROC: B24BZZ4 Ultrasonography of Heart with Aorta, Transesophageal (ICD-10-PCS; 2024-10-12)
PROC: 02RF08Z Replacement of Aortic Valve with Zooplastic Tissue, Open Approach (ICD-10-PCS; 2024-10-12)
DX: I35.0 Nonrheumatic aortic (valve) stenosis (principal); D62 Acute posthemorrhagic anemia; I50.1 Left ventricular failure, unspecified; J98.11 Atelectasis; I34.81 Nonrheumatic mitral (valve) annulus calcification; I25.10 Atherosclerotic heart disease of native coronary artery without angina pectoris; K57.30 Diverticulosis of large intestine without perforation or abscess without bleeding; I11.0 Hypertensive heart disease with heart failure; M19.90 Unspecified osteoarthritis, unspecified site; G47.33 Obstructive sleep apnea (adult) (pediatric); K44.9 Diaphragmatic hernia without obstruction or gangrene; I48.0 Paroxysmal atrial fibrillation; D69.59 Other secondary thrombocytopenia; E86.1 Hypovolemia; E87.70 Fluid overload, unspecified; E03.9 Hypothyroidism, unspecified; I49.3 Ventricular premature depolarization; E78.00 Pure hypercholesterolemia, unspecified; R00.1 Bradycardia, unspecified; Z79.82 Long term (current) use of aspirin; Z79.899 Other long term (current) drug therapy; Z87.891 Personal history of nicotine dependence
CPT/HCPCS: 88305; 88311; 36415; 71045; 71046; 80048; 80053; 81003; 82248; 82330; 82565; 82805; 82810; 82947; 82962; 83036; 83735; 84132; 84302; 84520; 85014; 85018; 85025; 85027; 85049; 85610; 85730; 86850; 86900; 86901; 86920; 87070; 93005; 93312; 93320; 93325; 93880; 94002; 94660; J2916; P9016; P9045

== ENCOUNTER 2024-11-26 09:49 | Outpatient (RCR) | payer OTHER, SELFPAY | END 2024-11-26 23:59 | disposition home or self-care (01) | LOC: CRHB 09:49 | PROVIDERS: ATTENDING PHYSICIAN Internal Medicine | DX: Z95.4 Presence of other heart-valve replacement (principal) | CPT/HCPCS: G0422; G0423 ==

== ENCOUNTER 2024-12-24 10:20 | Outpatient (RCR) | payer OTHER, SELFPAY | END 2024-12-24 23:59 | disposition home or self-care (01) | LOC: CRHB 10:20 | PROVIDERS: ATTENDING PHYSICIAN Internal Medicine | DX: Z95.4 Presence of other heart-valve replacement (principal) | CPT/HCPCS: 93306; G0422; G0423 ==

== ENCOUNTER 2025-01-24 10:38 | Outpatient (RCR) | payer OTHER, SELFPAY | END 2025-01-24 23:59 | disposition home or self-care (01) | LOC: CRHB 10:38 | PROVIDERS: ATTENDING PHYSICIAN Internal Medicine | DX: I25.10 Atherosclerotic heart disease of native coronary artery without angina pectoris (principal); Z95.4 Presence of other heart-valve replacement | CPT/HCPCS: G0422; G0423 ==

== ENCOUNTER 2025-02-14 09:15 | Outpatient (RCR) | payer OTHER, SELFPAY | END 2025-02-14 15:46 | disposition home or self-care (01) | LOC: CRHB 09:15 | PROVIDERS: ATTENDING PHYSICIAN Internal Medicine; FAMILY PHYSICIAN Nurse Practitioner Adult Health | DX: Z95.4 Presence of other heart-valve replacement (principal); I25.10 Atherosclerotic heart disease of native coronary artery without angina pectoris (principal) | CPT/HCPCS: G0422; G0423 ==

== ENCOUNTER → 2025-09-28 09:32 | Outpatient (REF) | payer OTHER, SELFPAY | LOC: RAD 09:32 | PROVIDERS: ATTENDING PHYSICIAN Nurse Practitioner Adult Health | DX: R91.1 Solitary pulmonary nodule (principal) | CPT/HCPCS: 71260; Q9967 ==